=== PATIENT | female | born 1930 | race African-American/Black ===

== ENCOUNTER 2017-09-26 19:34 | Inpatient (IN) ==
[2017-09-26 20:45] LABS: Basophils % 0.2 % (0.0-0.8); Eosinophils # 0.1 10*3/uL (0.0-0.87); Eosinophils % 1.2 % (0.00-10.9); Hematocrit 35.9 VOL% (35.7-47.0); Hemoglobin 11.7 GM/DL (12.0-16.0); Immature Granulocytes % 0.6 %; Immature Granulocytes Absolute 0.03 #; Lymphocytes # 1.1 10*3/uL (1.4-4.0); Lymphocytes % 22.5 % (21.3-54.2); Mean Corpuscular HGB Conc 32.6 GM/DL (32-36); Mean Corpuscular Hemoglobin 27 PG (27-34); Mean Corpuscular Volume 82.5 FL (87-102); Mean Platelet Volume 11.5 FL (9.6-12.0); Monocytes # 0.5 10*3/uL (0.11-0.8); NRBC # 0.04 10*3/uL; Neutrophils # 3.2 10*3/uL (1.4-7.4); Neutrophils % 65.5 % (38.7-73.9); Platelet Count 124 T/CUMM (130-400); Red Blood Count 4.35 MC/CUMM (3.8-5.5); Red Cell Distribution Width 16.1 % (9.3-17.3); White Blood Count 4.9 T/CUMM (4-12)
[2017-09-26 20:47] LABS: Alanine Aminotransferase 122 U/L (13-56); Albumin 3.1 G/DL (3.4-5.0); Alkaline Phosphatase 120 U/L (45-117); Aspartate Amino Transferase 59 U/L (0-37); Bilirubin,Total < 0.39 MG/DL (0.2-1.0); Blood Urea Nitrogen 19 MG/DL (7-18); Calcium 9.2 MG/DL (8.5-10.1); Glucose 224 MG/DL (74-106); Lactic Acid 1.6 MMOL/L (0.4-2.0); Osmolality,Calculated 278.1 MOS/KG (273-304); Potassium 5.2 MMOL/L (3.5-5.1); Sodium 135 MMOL/L (136-145); Total Protein 7.9 G/DL (6.4-8.3)
[2017-09-26 21:19] LABS: Apearance,Urine CLEAR (Clear); Bilirubin,Urine Negative (Negative); Blood, Urine Negative (Negative); Glucose,Urine (UA) 50 mg/dL (Negative); Hyaline Casts,Urine 1 /LPF (0-3); Ketones,Urine Negative (Negative); Mucus,Urine Occasional /LPF (Occasional); Nitrite,Urine Negative (Negative); Protein,Urine Negative; RBC,Urine <1 /HPF (0-4); Squamous Epithelial Cell,Urine Occasional /HPF (0-10); Urine Color Straw (Yellow); Urine Urobilinogen < 2.0 EU/DL (0.2-1.0); WBC,Urine <1 /HPF (0-6)
[2017-09-26] MEDS ORDERED: SODIUM CHLORIDE 0.9% 1,000 ML IV STA (21:24)
[2017-09-26] MEDS ORDERED: ACETAMINOPHEN 325 MG TABLET PO PRN (22:07)
[2017-09-26] MEDS ORDERED: ONDANSETRON 4 MG/2 ML VIAL IV PRN (22:07)
[2017-09-27] MEDS: DEXTROSE 5% NACL 0.9% 1,000 ML IV SCH ×3 (01:50→19:15)
[2017-09-27 05:49] LABS: Basophils % 0.4 % (0.0-0.8); Eosinophils % 0.8 % (0.00-10.9); Hematocrit 31.5 VOL% (35.7-47.0); Hemoglobin 10.4 GM/DL (12.0-16.0); Immature Granulocytes % 0.2 %; Immature Granulocytes Absolute 0.01 #; Lymphocytes # 1.3 10*3/uL (1.4-4.0); Lymphocytes % 27.8 % (21.3-54.2); Mean Corpuscular Hemoglobin 27 PG (27-34); Mean Corpuscular Volume 82.2 FL (87-102); Mean Platelet Volume 11.1 FL (9.6-12.0); Monocytes # 0.6 10*3/uL (0.11-0.8); Monocytes % 12.8 % (1.7-12.7); NRBC # 0.03 10*3/uL; Neutrophils # 2.8 10*3/uL (1.4-7.4); Platelet Count 152 T/CUMM (130-400); Red Blood Count 3.83 MC/CUMM (3.8-5.5); Red Cell Distribution Width 15.9 % (9.3-17.3); White Blood Count 4.8 T/CUMM (4-12)
[2017-09-27 06:24] LABS: Albumin 2.5 G/DL (3.4-5.0); Bilirubin,Total 0.8 MG/DL (0.2-1.0); Calcium 8.7 MG/DL (8.5-10.1); Osmolality,Calculated 285.8 MOS/KG (273-304); Total Protein 5.8 G/DL (6.4-8.3)
[2017-09-27] MEDS ORDERED: MAGNESIUM HYDROXIDE SUSP 30 ML UDCUP PO PRN (08:25)
[2017-09-27] MEDS ORDERED: GLUCAGON 1 MG VIAL IM PRN (08:25)
[2017-09-27] MEDS ORDERED: GLUCOSE GEL 15 GM TUBE PO PRN (08:25)
[2017-09-27] MEDS ORDERED: traMADol 50 MG TABLET PO PRN (08:25)
[2017-09-27] MEDS ORDERED: LACTULOSE 20 GM/30 ML UDCUP PO PRN (08:25)
[2017-09-27] MEDS: LEVOFLOXACIN INJ 500 MG in PREMIX 1 EACH IV SCH (08:50)
[2017-09-27] MEDS: PANTOPRAZOLE 40 MG TABLET PO SCH (10:48)
[2017-09-27] MEDS: ASPIRIN EC 81 MG TABLET PO SCH (10:48)
[2017-09-27] MEDS: DOCUSATE SODIUM 100 MG CAPSULE PO SCH ×2 (10:48→21:10)
[2017-09-27] MEDS: MEMANTINE 10 MG TABLET PO SCH ×2 (10:49→21:10)
[2017-09-27] MEDS: LOSARTAN 25 MG TABLET PO SCH (10:49)
[2017-09-27] MEDS: ATORVASTATIN 10 MG TABLET PO SCH (21:10)
[2017-09-27] MEDS: DONEPEZIL 10 MG TABLET PO SCH (21:10)
[2017-09-27] MEDS: INSULIN GLARGINE 100 UNIT/ML SUBCUT SCH (21:10)
[2017-09-28 02:42] LABS: Basophils % 0.5 % (0.0-0.8); Eosinophils % 0.7 % (0.00-10.9); Hematocrit 32.2 VOL% (35.7-47.0); Hemoglobin 10.3 GM/DL (12.0-16.0); Immature Granulocytes % 0.5 %; Immature Granulocytes Absolute 0.02 #; Lymphocytes # 1.2 10*3/uL (1.4-4.0); Lymphocytes % 30.4 % (21.3-54.2); Mean Corpuscular Hemoglobin 27 PG (27-34); Mean Corpuscular Volume 83.6 FL (87-102); Mean Platelet Volume 11.9 FL (9.6-12.0); Monocytes # 0.5 10*3/uL (0.11-0.8); Monocytes % 13.2 % (1.7-12.7); NRBC # 0.03 10*3/uL; Neutrophils # 2.2 10*3/uL (1.4-7.4); Neutrophils % 54.7 % (38.7-73.9); Platelet Count 139 T/CUMM (130-400); Red Blood Count 3.85 MC/CUMM (3.8-5.5); Red Cell Distribution Width 16.1 % (9.3-17.3)
[2017-09-28] MEDS: DEXTROSE 5% NACL 0.9% 1,000 ML IV SCH ×3 (03:15→21:25)
[2017-09-28 03:24] LABS: Albumin 2.5 G/DL (3.4-5.0); Bilirubin,Total 0.7 MG/DL (0.2-1.0); Calcium 8.7 MG/DL (8.5-10.1); Osmolality,Calculated 289.4 MOS/KG (273-304); Potassium 4.7 MMOL/L (3.5-5.1); Total Protein 5.9 G/DL (6.4-8.3)
[2017-09-28] MEDS: LEVOFLOXACIN INJ 500 MG in PREMIX 1 EACH IV SCH (09:01)
[2017-09-28] MEDS: ASPIRIN EC 81 MG TABLET PO SCH (09:02)
[2017-09-28] MEDS: PANTOPRAZOLE 40 MG TABLET PO SCH (09:02)
[2017-09-28] MEDS: LOSARTAN 25 MG TABLET PO SCH (09:02)
[2017-09-28] MEDS: MEMANTINE 10 MG TABLET PO SCH ×2 (09:02→21:24)
[2017-09-28] MEDS: DOCUSATE SODIUM 100 MG CAPSULE PO SCH ×2 (09:02→21:24)
[2017-09-28] MEDS: TROLAMINE SALICYLATE 10% CREAM 85 GM TUBE TOP SCH ×2 (12:13→21:25)
[2017-09-28] MEDS ORDERED: DEXTROSE 50% 25 GM/50 ML VIAL IV PRN (13:47)
[2017-09-28] MEDS: FLUCONAZOLE 100 MG TABLET PO SCH (16:42)
[2017-09-28] MEDS: DONEPEZIL 10 MG TABLET PO SCH (21:24)
[2017-09-28] MEDS: ATORVASTATIN 10 MG TABLET PO SCH (21:24)
[2017-09-28] MEDS: INSULIN GLARGINE 100 UNIT/ML SUBCUT SCH (21:25)
[2017-09-28] MEDS ORDERED: DEXTROSE 10% 1,000 ML IV SCH (23:45)
[2017-09-29] MEDS: DEXTROSE 10% 500 ML IV SCH ×2 (00:16→16:03)
[2017-09-29 05:18] LABS: Calcium 8.7 MG/DL (8.5-10.1); Osmolality,Calculated 285.7 MOS/KG (273-304); Potassium 4.9 MMOL/L (3.5-5.1)
[2017-09-29] MEDS: LEVOFLOXACIN INJ 500 MG in PREMIX 1 EACH IV SCH (08:33)
[2017-09-29] MEDS: TROLAMINE SALICYLATE 10% CREAM 85 GM TUBE TOP SCH ×2 (08:33→20:55)
[2017-09-29] MEDS: FLUCONAZOLE 100 MG TABLET PO SCH (08:34)
[2017-09-29] MEDS: PANTOPRAZOLE 40 MG TABLET PO SCH (08:34)
[2017-09-29] MEDS: ASPIRIN EC 81 MG TABLET PO SCH (08:34)
[2017-09-29] MEDS: DOCUSATE SODIUM 100 MG CAPSULE PO SCH ×2 (08:34→20:55)
[2017-09-29] MEDS: MEMANTINE 10 MG TABLET PO SCH ×2 (08:34→20:55)
[2017-09-29] MEDS: LOSARTAN 25 MG TABLET PO SCH (08:34)
[2017-09-29] MEDS: LORazepam 2 MG/1 ML VIAL IV PRN (13:04)
[2017-09-29 14:18] LABS: Calcium 8.9 MG/DL (8.5-10.1)
[2017-09-29 14:19] LABS: Osmolality,Calculated 280.1 MOS/KG (273-304); Potassium 5.1 MMOL/L (3.5-5.1)
[2017-09-29] MEDS: DONEPEZIL 10 MG TABLET PO SCH (20:55)
[2017-09-29] MEDS: ATORVASTATIN 10 MG TABLET PO SCH (20:55)
[2017-09-29] MEDS: INSULIN GLARGINE 100 UNIT/ML SUBCUT SCH (21:31)
[2017-09-30] MEDS: DEXTROSE 10% 500 ML IV SCH (05:50)
[2017-09-30] MEDS: LEVOFLOXACIN INJ 500 MG in PREMIX 1 EACH IV SCH (09:01)
[2017-09-30] MEDS: DOCUSATE SODIUM 100 MG CAPSULE PO SCH ×2 (09:46→21:04)
[2017-09-30] MEDS: ASPIRIN EC 81 MG TABLET PO SCH (09:46)
[2017-09-30] MEDS: LOSARTAN 25 MG TABLET PO SCH (09:46)
[2017-09-30] MEDS: FLUCONAZOLE 100 MG TABLET PO SCH (09:50)
[2017-09-30] MEDS: PANTOPRAZOLE 40 MG TABLET PO SCH (09:51)
[2017-09-30] MEDS: MEMANTINE 10 MG TABLET PO SCH ×2 (09:51→21:04)
[2017-09-30] MEDS: TROLAMINE SALICYLATE 10% CREAM 85 GM TUBE TOP SCH ×2 (09:51→21:04)
[2017-09-30] MEDS: DONEPEZIL 10 MG TABLET PO SCH (21:04)
[2017-09-30] MEDS: ATORVASTATIN 10 MG TABLET PO SCH (21:04)
[2017-09-30] MEDS: INSULIN GLARGINE 100 UNIT/ML SUBCUT SCH (21:05)
[2017-10-01] MEDS: DEXTROSE 10% 500 ML IV SCH ×2 (05:33)
[2017-10-01] MEDS ORDERED: GLUCAGON 1 MG VIAL IM PRN (08:12)
[2017-10-01] MEDS ORDERED: DEXTROSE 50% 25 GM/50 ML VIAL IV PRN (08:12)
[2017-10-01 08:30] LABS: Basophils % 0.4 % (0.0-0.8); Eosinophils # 0.1 10*3/uL (0.0-0.87); Eosinophils % 1.9 % (0.00-10.9); Hematocrit 33.5 VOL% (35.7-47.0); Immature Granulocytes % 0.4 %; Immature Granulocytes Absolute 0.02 #; Lymphocytes # 1.6 10*3/uL (1.4-4.0); Lymphocytes % 31.1 % (21.3-54.2); Mean Corpuscular HGB Conc 32.8 GM/DL (32-36); Mean Corpuscular Hemoglobin 27 PG (27-34); Mean Corpuscular Volume 82.1 FL (87-102); Mean Platelet Volume 11.3 FL (9.6-12.0); Monocytes # 0.8 10*3/uL (0.11-0.8); Monocytes % 14.6 % (1.7-12.7); NRBC # 0.02 10*3/uL; Neutrophils # 2.7 10*3/uL (1.4-7.4); Neutrophils % 51.6 % (38.7-73.9); Platelet Count 127 T/CUMM (130-400); Red Blood Count 4.08 MC/CUMM (3.8-5.5); Red Cell Distribution Width 16.2 % (9.3-17.3); White Blood Count 5.3 T/CUMM (4-12)
[2017-10-01] MEDS: PANTOPRAZOLE 40 MG TABLET PO SCH (08:45)
[2017-10-01] MEDS: ASPIRIN EC 81 MG TABLET PO SCH (08:45)
[2017-10-01] MEDS: LOSARTAN 25 MG TABLET PO SCH (08:45)
[2017-10-01] MEDS: TROLAMINE SALICYLATE 10% CREAM 85 GM TUBE TOP SCH ×2 (08:46→21:15)
[2017-10-01] MEDS: MEMANTINE 10 MG TABLET PO SCH ×2 (08:46→21:11)
[2017-10-01] MEDS: DOCUSATE SODIUM 100 MG CAPSULE PO SCH ×2 (08:46→21:11)
[2017-10-01] MEDS: FLUCONAZOLE 100 MG TABLET PO SCH (08:46)
[2017-10-01] MEDS: LEVOFLOXACIN INJ 500 MG in PREMIX 1 EACH IV SCH (08:46)
[2017-10-01 08:57] LABS: Calcium 9.1 MG/DL (8.5-10.1); Osmolality,Calculated 282.3 MOS/KG (273-304); Potassium 4.3 MMOL/L (3.5-5.1)
[2017-10-01] MEDS ORDERED: ALBUTEROL/IPRATROPIUM 3 ML NEB RESP TX PRN (12:36)
[2017-10-01] MEDS: INSULIN LISPRO 100 UNIT/ML SUBCUT SCH ×3 (13:21→21:16)
[2017-10-01] MEDS: ALBUTEROL/IPRATROPIUM 3 ML NEB RESP TX SCH ×2 (13:30→19:05)
[2017-10-01] MEDS: DONEPEZIL 10 MG TABLET PO SCH (21:10)
[2017-10-01] MEDS: ATORVASTATIN 10 MG TABLET PO SCH (21:11)
[2017-10-01] MEDS: INSULIN GLARGINE 100 UNIT/ML SUBCUT SCH (21:16)
[2017-10-02] MEDS: DEXTROSE 10% 500 ML IV SCH ×2
[2017-10-02] MEDS: ALBUTEROL/IPRATROPIUM 3 ML NEB RESP TX SCH ×2 (07:17→20:16)
[2017-10-02] MEDS: INSULIN LISPRO 100 UNIT/ML SUBCUT SCH ×4 (08:42→21:14)
[2017-10-02] MEDS: LEVOFLOXACIN INJ 500 MG in PREMIX 1 EACH IV SCH (09:06)
[2017-10-02] MEDS: PANTOPRAZOLE 40 MG TABLET PO SCH (09:06)
[2017-10-02] MEDS: FLUCONAZOLE 100 MG TABLET PO SCH (09:06)
[2017-10-02] MEDS: MEMANTINE 10 MG TABLET PO SCH ×2 (09:06→21:13)
[2017-10-02] MEDS: DOCUSATE SODIUM 100 MG CAPSULE PO SCH ×2 (09:06→21:13)
[2017-10-02] MEDS: TROLAMINE SALICYLATE 10% CREAM 85 GM TUBE TOP SCH ×2 (09:06→21:13)
[2017-10-02] MEDS: ASPIRIN EC 81 MG TABLET PO SCH (09:06)
[2017-10-02] MEDS: LOSARTAN 25 MG TABLET PO SCH (09:06)
[2017-10-02] MEDS: ATORVASTATIN 10 MG TABLET PO SCH (21:13)
[2017-10-02] MEDS: DONEPEZIL 10 MG TABLET PO SCH (21:13)
[2017-10-02] MEDS: INSULIN GLARGINE 100 UNIT/ML SUBCUT SCH (21:14)
[2017-10-02] MEDS: LORazepam 2 MG/1 ML VIAL IV PRN (22:21)
[2017-10-03] MEDS: INSULIN LISPRO 100 UNIT/ML SUBCUT SCH (07:15)
[2017-10-03] MEDS: ALBUTEROL/IPRATROPIUM 3 ML NEB RESP TX SCH (07:20)
[2017-10-03 07:31] VITALS: BP 114/77
== END 2017-10-03 08:30 | DRG 922 ==
LOC: EDUNIT# → EDBD → N.ED 19:34 → N.EDINP 22:07 → N.2E 22:43
PROVIDERS: ADMIT Internal Medicine; ATTEND Internal Medicine

== ENCOUNTER 2017-10-08 16:21 | Inpatient (IN) ==
[2017-10-08] MEDS ORDERED: SODIUM CHLORIDE 0.9% 500 ML IV STA (16:52)
[2017-10-08 17:56] LABS: Basophils % 0.2 % (0.0-0.8); Eosinophils % 0.6 % (0.00-10.9); Hematocrit 34.4 VOL% (35.7-47.0); Hemoglobin 11.2 GM/DL (12.0-16.0); Immature Granulocytes % 0.6 %; Immature Granulocytes Absolute 0.04 #; Lymphocytes # 1.4 10*3/uL (1.4-4.0); Lymphocytes % 22.2 % (21.3-54.2); Mean Corpuscular HGB Conc 32.6 GM/DL (32-36); Mean Corpuscular Hemoglobin 27 PG (27-34); Mean Corpuscular Volume 82.7 FL (87-102); Mean Platelet Volume 11.7 FL (9.6-12.0); Monocytes # 0.5 10*3/uL (0.11-0.8); Monocytes % 7.8 % (1.7-12.7); NRBC # 0.02 10*3/uL; Neutrophils # 4.2 10*3/uL (1.4-7.4); Neutrophils % 68.6 % (38.7-73.9); Platelet Count 186 T/CUMM (130-400); Red Blood Count 4.16 MC/CUMM (3.8-5.5); Red Cell Distribution Width 16.5 % (9.3-17.3); White Blood Count 6.2 T/CUMM (4-12)
[2017-10-08 18:08] LABS: PT Patient Result 10.8 SECS
[2017-10-08 18:16] LABS: Ammonia 20 UMOL/L (11-32)
[2017-10-08 18:22] LABS: Alanine Aminotransferase 80 U/L (13-56); Albumin 2.9 G/DL (3.4-5.0); Alkaline Phosphatase 125 U/L (45-117); Aspartate Amino Transferase 33 U/L (0-37); Bilirubin,Total < 0.39 MG/DL (0.2-1.0); Blood Urea Nitrogen 22 MG/DL (7-18); Glucose 186 MG/DL (74-106); Lactic Acid 1.3 MMOL/L (0.4-2.0); Osmolality,Calculated 282.7 MOS/KG (273-304); Potassium 5.2 MMOL/L (3.5-5.1); Sodium 138 MMOL/L (136-145); Total Protein 7.1 G/DL (6.4-8.3); Troponin I Only < 0.015 NG/ML (0.00-0.045)
[2017-10-08 18:36] LABS: Apearance,Urine CLEAR (Clear); Bacteria,Urine Many /HPF (Few); Bilirubin,Urine Negative (Negative); Blood, Urine Negative (Negative); Glucose,Urine (UA) Negative (Negative); Ketones,Urine Negative (Negative); Mucus,Urine Occasional /LPF (Occasional); Nitrite,Urine Negative (Negative); Protein,Urine Negative; RBC,Urine 1 /HPF (0-4); Urine Color Yellow (Yellow); Urine Specific Gravity 1.012 (1.001-1.035); Urine Urobilinogen < 2.0 EU/DL (0.2-1.0); WBC,Urine 23 /HPF (0-6)
[2017-10-08] MEDS ORDERED: cefTRIAXone 1,000 MG in SODIUM CHLORIDE 0.9% 100 ML IV STA (18:44)
[2017-10-08] MEDS ORDERED: cefTRIAXone 1,000 MG VIAL ONE (19:02)
[2017-10-08] MEDS ORDERED: ACETAMINOPHEN 325 MG TABLET PO PRN (19:58)
[2017-10-08] MEDS ORDERED: traMADol 50 MG TABLET PO PRN (19:58)
[2017-10-08] MEDS ORDERED: ACETAMINOPHEN 500 MG TABLET PO PRN (19:58)
[2017-10-08] MEDS ORDERED: MAGNESIUM HYDROXIDE SUSP 30 ML UDCUP PO PRN (19:58)
[2017-10-08] MEDS ORDERED: ONDANSETRON 4 MG/2 ML VIAL IV PRN (19:58)
[2017-10-08] MEDS ORDERED: DEXTROSE 50% 25 GM/50 ML VIAL IV PRN (19:58)
[2017-10-08] MEDS ORDERED: GLUCAGON 1 MG VIAL IM PRN ×2 (19:58)
[2017-10-08] MEDS ORDERED: LACTULOSE 20 GM/30 ML UDCUP PO PRN (19:58)
[2017-10-08] MEDS ORDERED: INSULIN DETEMIR 100 UNIT/ML SUBCUT SCH (21:00)
[2017-10-08] MEDS: INSULIN REGULAR 100 UNIT/ML SUBCUT SCH (21:28)
[2017-10-08] MEDS: DOCUSATE SODIUM 100 MG CAPSULE PO SCH (21:28)
[2017-10-08] MEDS: ATORVASTATIN 10 MG TABLET PO SCH (21:28)
[2017-10-08] MEDS: DONEPEZIL 10 MG TABLET PO SCH (21:28)
[2017-10-08] MEDS: INSULIN GLARGINE 100 UNIT/ML SUBCUT SCH ×2 (21:28→21:30)
[2017-10-08] MEDS: SODIUM CHLORIDE 0.9% 1,000 ML IV SCH (21:28)
[2017-10-09 04:42] LABS: Basophils % 0.2 % (0.0-0.8); Eosinophils # 0.1 10*3/uL (0.0-0.87); Eosinophils % 1.2 % (0.00-10.9); Hematocrit 32.7 VOL% (35.7-47.0); Hemoglobin 10.8 GM/DL (12.0-16.0); Immature Granulocytes % 0.6 %; Immature Granulocytes Absolute 0.03 #; Lymphocytes # 1.5 10*3/uL (1.4-4.0); Lymphocytes % 29.6 % (21.3-54.2); Mean Corpuscular Hemoglobin 27 PG (27-34); Mean Corpuscular Volume 81.1 FL (87-102); Mean Platelet Volume 11.8 FL (9.6-12.0); Monocytes # 0.4 10*3/uL (0.11-0.8); Monocytes % 8.1 % (1.7-12.7); NRBC # 0.02 10*3/uL; Neutrophils # 3.1 10*3/uL (1.4-7.4); Neutrophils % 60.3 % (38.7-73.9); Platelet Count 200 T/CUMM (130-400); Red Blood Count 4.03 MC/CUMM (3.8-5.5); Red Cell Distribution Width 16.6 % (9.3-17.3); White Blood Count 5.2 T/CUMM (4-12)
[2017-10-09] MEDS: SODIUM CHLORIDE 0.9% 1,000 ML IV SCH ×3 (05:12→20:56)
[2017-10-09 05:21] LABS: Albumin 2.9 G/DL (3.4-5.0); Bilirubin,Total 0.6 MG/DL (0.2-1.0); Calcium 8.9 MG/DL (8.5-10.1); Osmolality,Calculated 283.1 MOS/KG (273-304); Potassium 5.1 MMOL/L (3.5-5.1); Risk Ratio 2.45; Total Protein 6.9 G/DL (6.4-8.3)
[2017-10-09] MEDS: LEVOTHYROXINE 25 MCG TABLET PO SCH (06:32)
[2017-10-09] MEDS: LOSARTAN 25 MG TABLET PO SCH (09:38)
[2017-10-09] MEDS: ASPIRIN EC 81 MG TABLET PO SCH (09:38)
[2017-10-09] MEDS: MULTIVITAMIN (CENTRUM) TABLET PO SCH (09:38)
[2017-10-09] MEDS: MEMANTINE 10 MG TABLET PO SCH ×2 (09:38→20:49)
[2017-10-09] MEDS: DOCUSATE SODIUM 100 MG CAPSULE PO SCH ×2 (09:39→20:49)
[2017-10-09] MEDS: PANTOPRAZOLE 40 MG TABLET PO SCH (09:39)
[2017-10-09] MEDS: INSULIN REGULAR 100 UNIT/ML SUBCUT SCH ×4 (10:01→20:32)
[2017-10-09] MEDS: cefTRIAXone 1,000 MG in SYRINGE 1 EACH IV SCH (17:26)
[2017-10-09] MEDS: ATORVASTATIN 10 MG TABLET PO SCH (20:49)
[2017-10-09] MEDS: DONEPEZIL 10 MG TABLET PO SCH (20:49)
[2017-10-10] MEDS: SODIUM CHLORIDE 0.9% 1,000 ML IV SCH (04:45)
[2017-10-10] MEDS: LEVOTHYROXINE 25 MCG TABLET PO SCH (05:33)
[2017-10-10 06:51] LABS: Basophils % 0.2 % (0.0-0.8); Eosinophils # 0.1 10*3/uL (0.0-0.87); Eosinophils % 1.2 % (0.00-10.9); Hematocrit 29.9 VOL% (35.7-47.0); Hemoglobin 10.1 GM/DL (12.0-16.0); Immature Granulocytes Absolute 0.06 #; Lymphocytes % 34.2 % (21.3-54.2); Mean Corpuscular HGB Conc 33.8 GM/DL (32-36); Mean Corpuscular Hemoglobin 27 PG (27-34); Mean Corpuscular Volume 80.4 FL (87-102); Mean Platelet Volume 11.5 FL (9.6-12.0); Monocytes # 0.5 10*3/uL (0.11-0.8); Monocytes % 8.8 % (1.7-12.7); NRBC # 0.02 10*3/uL; Neutrophils # 3.2 10*3/uL (1.4-7.4); Neutrophils % 54.6 % (38.7-73.9); Platelet Count 197 T/CUMM (130-400); Red Blood Count 3.72 MC/CUMM (3.8-5.5); Red Cell Distribution Width 16.9 % (9.3-17.3); White Blood Count 5.8 T/CUMM (4-12)
[2017-10-10 07:18] LABS: Calcium 8.8 MG/DL (8.5-10.1); Osmolality,Calculated 285.7 MOS/KG (273-304); Potassium 4.8 MMOL/L (3.5-5.1)
[2017-10-10] MEDS: INSULIN REGULAR 100 UNIT/ML SUBCUT SCH (07:28)
[2017-10-10] MEDS: DEXTROSE 5% NACL 0.9% 1,000 ML IV SCH ×3 (09:30→23:14)
[2017-10-10] MEDS: PANTOPRAZOLE 40 MG TABLET PO SCH (10:27)
[2017-10-10] MEDS: MEMANTINE 10 MG TABLET PO SCH ×2 (10:27→21:22)
[2017-10-10] MEDS: ASPIRIN EC 81 MG TABLET PO SCH (10:27)
[2017-10-10] MEDS: MULTIVITAMIN (CENTRUM) TABLET PO SCH (10:27)
[2017-10-10] MEDS: DOCUSATE SODIUM 100 MG CAPSULE PO SCH ×2 (10:27→21:22)
[2017-10-10] MEDS: LOSARTAN 25 MG TABLET PO SCH (10:27)
[2017-10-10] MEDS: VANCOMYCIN INJ 1,250 MG in SODIUM CHLORIDE 0.9% 250 ML IV SCH (16:00)
[2017-10-10] MEDS: cefTRIAXone 1,000 MG in SYRINGE 1 EACH IV SCH (17:55)
[2017-10-10] MEDS: ATORVASTATIN 10 MG TABLET PO SCH (21:22)
[2017-10-10] MEDS: DONEPEZIL 10 MG TABLET PO SCH (21:22)
[2017-10-11] MEDS: DEXTROSE 5% NACL 0.9% 1,000 ML IV SCH ×3 (04:31→21:08)
[2017-10-11] MEDS: LEVOTHYROXINE 25 MCG TABLET PO SCH (05:58)
[2017-10-11] MEDS: MEMANTINE 10 MG TABLET PO SCH ×2 (09:26→21:09)
[2017-10-11] MEDS: LOSARTAN 25 MG TABLET PO SCH (09:27)
[2017-10-11] MEDS: ASPIRIN EC 81 MG TABLET PO SCH (09:27)
[2017-10-11] MEDS: MULTIVITAMIN (CENTRUM) TABLET PO SCH (09:27)
[2017-10-11] MEDS: DOCUSATE SODIUM 100 MG CAPSULE PO SCH ×2 (09:28→21:09)
[2017-10-11] MEDS: PANTOPRAZOLE 40 MG TABLET PO SCH (09:28)
[2017-10-11] MEDS: VANCOMYCIN INJ 1,250 MG in SODIUM CHLORIDE 0.9% 250 ML IV SCH (14:23)
[2017-10-11] MEDS: ceFAZolin 1,000 MG in SYRINGE 1 EACH IV SCH (19:25)
[2017-10-11] MEDS: DONEPEZIL 10 MG TABLET PO SCH (21:09)
[2017-10-11] MEDS: ATORVASTATIN 10 MG TABLET PO SCH (21:09)
[2017-10-11] MEDS ORDERED: INSULIN REGULAR 100 UNIT/ML ONE (23:04)
[2017-10-11] MEDS: INSULIN REGULAR 100 UNIT/ML SUBCUT SCH (23:06)
[2017-10-12] MEDS: ceFAZolin 1,000 MG in SYRINGE 1 EACH IV SCH ×3 (01:30→17:08)
[2017-10-12] MEDS: DEXTROSE 5% NACL 0.9% 1,000 ML IV SCH ×2 (03:00→20:11)
[2017-10-12] MEDS: LEVOTHYROXINE 25 MCG TABLET PO SCH (05:45)
[2017-10-12 06:01] LABS: Basophils % 0.4 % (0.0-0.8); Eosinophils # 0.1 10*3/uL (0.0-0.87); Eosinophils % 2.5 % (0.00-10.9); Hematocrit 29.7 VOL% (35.7-47.0); Hemoglobin 9.6 GM/DL (12.0-16.0); Immature Granulocytes % 0.6 %; Immature Granulocytes Absolute 0.03 #; Lymphocytes # 1.7 10*3/uL (1.4-4.0); Lymphocytes % 32.8 % (21.3-54.2); Mean Corpuscular HGB Conc 32.3 GM/DL (32-36); Mean Corpuscular Hemoglobin 27 PG (27-34); Mean Corpuscular Volume 82.5 FL (87-102); Mean Platelet Volume 10.8 FL (9.6-12.0); Monocytes # 0.7 10*3/uL (0.11-0.8); Monocytes % 14.3 % (1.7-12.7); NRBC # 0.02 10*3/uL; Neutrophils # 2.6 10*3/uL (1.4-7.4); Neutrophils % 49.4 % (38.7-73.9); Platelet Count 184 T/CUMM (130-400); White Blood Count 5.2 T/CUMM (4-12)
[2017-10-12 06:16] LABS: Calcium 8.7 MG/DL (8.5-10.1); Osmolality,Calculated 288.4 MOS/KG (273-304); Potassium 4.2 MMOL/L (3.5-5.1)
[2017-10-12] MEDS: INSULIN REGULAR 100 UNIT/ML SUBCUT SCH ×4 (08:47→20:23)
[2017-10-12] MEDS: MEMANTINE 10 MG TABLET PO SCH ×2 (10:06→20:22)
[2017-10-12] MEDS: DOCUSATE SODIUM 100 MG CAPSULE PO SCH ×2 (10:06→20:22)
[2017-10-12] MEDS: ASPIRIN EC 81 MG TABLET PO SCH (10:07)
[2017-10-12] MEDS: PANTOPRAZOLE 40 MG TABLET PO SCH (10:07)
[2017-10-12] MEDS: LOSARTAN 25 MG TABLET PO SCH (10:07)
[2017-10-12] MEDS: MULTIVITAMIN (CENTRUM) TABLET PO SCH (10:08)
[2017-10-12] MEDS: DONEPEZIL 10 MG TABLET PO SCH (20:22)
[2017-10-12] MEDS: ATORVASTATIN 10 MG TABLET PO SCH (20:22)
[2017-10-12] MEDS: MELATONIN 3 MG TABLET PO PRN (22:37)
[2017-10-13] MEDS: cloNIDine 0.1 MG TABLET PO PRN ×2 (00:13→06:31)
[2017-10-13] MEDS: DEXTROSE 5% NACL 0.9% 1,000 ML IV SCH ×4 (01:00→20:30)
[2017-10-13] MEDS: ceFAZolin 1,000 MG in SYRINGE 1 EACH IV SCH ×3 (01:01→18:11)
[2017-10-13] MEDS: LEVOTHYROXINE 25 MCG TABLET PO SCH (06:30)
[2017-10-13] MEDS: INSULIN REGULAR 100 UNIT/ML SUBCUT SCH ×4 (09:48→20:25)
[2017-10-13] MEDS: ASPIRIN EC 81 MG TABLET PO SCH (09:50)
[2017-10-13] MEDS: MULTIVITAMIN (CENTRUM) TABLET PO SCH (09:50)
[2017-10-13] MEDS: LOSARTAN 25 MG TABLET PO SCH (09:50)
[2017-10-13] MEDS: MEMANTINE 10 MG TABLET PO SCH ×2 (09:50→20:25)
[2017-10-13] MEDS: DOCUSATE SODIUM 100 MG CAPSULE PO SCH ×2 (09:50→20:25)
[2017-10-13] MEDS: PANTOPRAZOLE 40 MG TABLET PO SCH (09:50)
[2017-10-13] MEDS: ATORVASTATIN 10 MG TABLET PO SCH (20:25)
[2017-10-13] MEDS: MELATONIN 3 MG TABLET PO PRN (20:25)
[2017-10-13] MEDS: DONEPEZIL 10 MG TABLET PO SCH (20:25)
[2017-10-14] MEDS: LEVOTHYROXINE 25 MCG TABLET PO SCH (05:26)
[2017-10-14] MEDS: cloNIDine 0.1 MG TABLET PO PRN ×2 (05:26→21:05)
[2017-10-14 06:06] LABS: Basophils % 0.2 % (0.0-0.8); Eosinophils # 0.1 10*3/uL (0.0-0.87); Eosinophils % 2.4 % (0.00-10.9); Hematocrit 32.2 VOL% (35.7-47.0); Hemoglobin 10.7 GM/DL (12.0-16.0); Immature Granulocytes % 0.5 %; Immature Granulocytes Absolute 0.03 #; Lymphocytes # 1.4 10*3/uL (1.4-4.0); Lymphocytes % 24.2 % (21.3-54.2); Mean Corpuscular HGB Conc 33.2 GM/DL (32-36); Mean Corpuscular Hemoglobin 27 PG (27-34); Mean Corpuscular Volume 81.9 FL (87-102); Mean Platelet Volume 10.7 FL (9.6-12.0); Monocytes # 0.6 10*3/uL (0.11-0.8); Monocytes % 10.8 % (1.7-12.7); NRBC # 0.02 10*3/uL; Neutrophils # 3.6 10*3/uL (1.4-7.4); Neutrophils % 61.9 % (38.7-73.9); Platelet Count 198 T/CUMM (130-400); Red Blood Count 3.93 MC/CUMM (3.8-5.5); Red Cell Distribution Width 16.2 % (9.3-17.3); White Blood Count 5.8 T/CUMM (4-12)
[2017-10-14 06:40] LABS: Alanine Aminotransferase 37 U/L (13-56); Alkaline Phosphatase 124 U/L (45-117); Aspartate Amino Transferase 19 U/L (0-37); Bilirubin,Total < 0.39 MG/DL (0.2-1.0); Blood Urea Nitrogen 10 MG/DL (7-18); Calcium 9.4 MG/DL (8.5-10.1); Glucose 103 MG/DL (74-106); Osmolality,Calculated 284.8 MOS/KG (273-304); Sodium 144 MMOL/L (136-145); Total Protein 6.8 G/DL (6.4-8.3)
[2017-10-14] MEDS ORDERED: cloNIDine 0.1 MG TABLET PO SCH (09:00)
[2017-10-14] MEDS: INSULIN REGULAR 100 UNIT/ML SUBCUT SCH ×4 (09:07→21:06)
[2017-10-14] MEDS: LOSARTAN 25 MG TABLET PO SCH (09:37)
[2017-10-14] MEDS: PANTOPRAZOLE 40 MG TABLET PO SCH (09:38)
[2017-10-14] MEDS: DOCUSATE SODIUM 100 MG CAPSULE PO SCH ×2 (09:38→21:05)
[2017-10-14] MEDS: ASPIRIN EC 81 MG TABLET PO SCH (09:38)
[2017-10-14] MEDS: MEMANTINE 10 MG TABLET PO SCH ×2 (09:38→21:05)
[2017-10-14] MEDS: MULTIVITAMIN (CENTRUM) TABLET PO SCH (09:38)
[2017-10-14] MEDS: AMOXICILLIN/CLAV 500 MG TABLET PO SCH ×2 (09:38→21:06)
[2017-10-14] MEDS: DONEPEZIL 10 MG TABLET PO SCH (21:05)
[2017-10-14] MEDS: ATORVASTATIN 10 MG TABLET PO SCH (21:05)
[2017-10-15 05:57] LABS: Calcium 8.7 MG/DL (8.5-10.1); Osmolality,Calculated 284.8 MOS/KG (273-304); Potassium 3.9 MMOL/L (3.5-5.1)
[2017-10-15] MEDS: LEVOTHYROXINE 25 MCG TABLET PO SCH (06:00)
[2017-10-15 06:45] VITALS: BP 120/60
[2017-10-15] MEDS ORDERED: LOSARTAN 25 MG TABLET PO SCH (08:00)
[2017-10-15] MEDS ORDERED: cloNIDine 0.1 MG TABLET PO SCH (09:00)
[2017-10-15] MEDS: MULTIVITAMIN (CENTRUM) TABLET PO SCH (09:59)
[2017-10-15] MEDS: ASPIRIN EC 81 MG TABLET PO SCH (09:59)
[2017-10-15] MEDS: AMOXICILLIN/CLAV 500 MG TABLET PO SCH (10:00)
[2017-10-15] MEDS: INSULIN REGULAR 100 UNIT/ML SUBCUT SCH (10:00)
[2017-10-15] MEDS: DOCUSATE SODIUM 100 MG CAPSULE PO SCH (10:00)
[2017-10-15] MEDS: MEMANTINE 10 MG TABLET PO SCH (10:01)
[2017-10-15] MEDS: PANTOPRAZOLE 40 MG TABLET PO SCH (10:01)
== END 2017-10-15 10:10 | DRG 922 ==
LOC: EDUNIT# → EDBD → N.ED 16:21 → N.EDINP 18:45 → N.TELEN 19:22 → N.3E 10-09 13:31
PROVIDERS: ADMIT Internal Medicine; ATTEND Internal Medicine

== ENCOUNTER 2017-12-11 11:46 | Inpatient (IN) ==
[2017-12-11] MEDS ORDERED: SODIUM CHLORIDE 0.9% 500 ML IV STA (12:13)
[2017-12-11] MEDS ORDERED: DEXTROSE 50% 25 GM/50 ML VIAL IV STA (12:41)
[2017-12-11 12:42] LABS: Basophils % 0.2 % (0.0-0.8); Eosinophils % 0.3 % (0.00-10.9); Hematocrit 34.7 VOL% (35.7-47.0); Hemoglobin 11.2 GM/DL (12.0-16.0); Immature Granulocytes % 0.3 %; Immature Granulocytes Absolute 0.03 #; Lymphocytes # 1.7 10*3/uL (1.4-4.0); Mean Corpuscular HGB Conc 32.3 GM/DL (32-36); Mean Corpuscular Hemoglobin 27 PG (27-34); Mean Corpuscular Volume 83.2 FL (87-102); Mean Platelet Volume 11.1 FL (9.6-12.0); Monocytes % 11.5 % (1.7-12.7); NRBC # 0.02 10*3/uL; Neutrophils # 5.8 10*3/uL (1.4-7.4); Neutrophils % 67.7 % (38.7-73.9); Platelet Count 134 T/CUMM (130-400); Red Blood Count 4.17 MC/CUMM (3.8-5.5); Red Cell Distribution Width 16.7 % (9.3-17.3); White Blood Count 8.6 T/CUMM (4-12)
[2017-12-11] MEDS ORDERED: DEXTROSE 50% 25 GM/50 ML SYRINGE IV ONE (12:42)
[2017-12-11 12:48] LABS: Apearance,Urine CLEAR (Clear); Bilirubin,Urine Negative (Negative); Blood, Urine Negative (Negative); Glucose,Urine (UA) Negative (Negative); Hyaline Casts,Urine 1 /LPF (0-3); Ketones,Urine Negative (Negative); Nitrite,Urine Positive (Negative); Protein,Urine Negative; RBC,Urine 2 /HPF (0-4); Squamous Epithelial Cell,Urine Occasional /HPF (0-10); Urine Color Yellow (Yellow); Urine Urobilinogen < 2.0 EU/DL (0.2-1.0); WBC,Urine 14 /HPF (0-6)
[2017-12-11 13:08] LABS: Alanine Aminotransferase 79 U/L (13-56); Albumin 2.7 G/DL (3.4-5.0); Alkaline Phosphatase 109 U/L (45-117); Aspartate Amino Transferase 40 U/L (0-37); Blood Urea Nitrogen 24 MG/DL (7-18); Calcium 9.2 MG/DL (8.5-10.1); Glucose 73 MG/DL (74-106); Osmolality,Calculated 292.6 MOS/KG (273-304); Potassium 5.2 MMOL/L (3.5-5.1); Sodium 146 MMOL/L (136-145); Total Protein 7.7 G/DL (6.4-8.3); Troponin I Only < 0.015 NG/ML (0.00-0.045)
[2017-12-11] MEDS ORDERED: LEVOFLOXACIN INJ 500 MG in PREMIX 1 EACH IV STA (13:09)
[2017-12-11 13:20] LABS: Ammonia 28 UMOL/L (11-32)
[2017-12-11] MEDS ORDERED: ONDANSETRON 4 MG/2 ML VIAL IV PRN ×2 (14:24→16:09)
[2017-12-11] MEDS ORDERED: SODIUM CHLORIDE 0.9% 1,000 ML IV SCH (14:30)
[2017-12-11] MEDS ORDERED: DEXTROSE 5% NACL 0.45% 1,000 ML IV SCH (14:30)
[2017-12-11] MEDS ORDERED: ENOXAPARIN 30 MG/0.3 ML SYRINGE SUBCUT SCH (14:30)
[2017-12-11] MEDS ORDERED: cefTRIAXone 1,000 MG in SODIUM CHLORIDE 0.9% 100 ML IV SCH (14:30)
[2017-12-11] MEDS ORDERED: DEXTROSE 50% 25 GM/50 ML VIAL IV PRN (14:33)
[2017-12-11] MEDS ORDERED: GLUCAGON 1 MG VIAL IM PRN ×2 (14:33→16:09)
[2017-12-11] MEDS ORDERED: MEROPENEM 500 MG in SODIUM CHLORIDE 0.9% 100 ML IV SCH (15:00)
[2017-12-11] MEDS ORDERED: ACETAMINOPHEN 325 MG TABLET PO PRN (16:09)
[2017-12-11] MEDS ORDERED: INSULIN LISPRO 100 UNIT/ML SUBCUT SCH (16:30)
[2017-12-11] MEDS: SODIUM CHLORIDE 0.9% 1,000 ML IV SCH (16:35)
[2017-12-11] MEDS ORDERED: DONEPEZIL 10 MG TABLET PO SCH (21:00)
[2017-12-11] MEDS: DOCUSATE SODIUM 100 MG CAPSULE PO SCH (22:04)
[2017-12-12] MEDS ORDERED: LEVOTHYROXINE 25 MCG TABLET PO SCH (06:00)
[2017-12-12] MEDS: SODIUM CHLORIDE 0.9% 1,000 ML IV SCH ×3 (07:48→16:29)
[2017-12-12] MEDS ORDERED: LOSARTAN 25 MG TABLET PO SCH (08:00)
[2017-12-12] MEDS ORDERED: NON-FORMULARY MEDICATION (Memantine Hcl [Namenda Xr] 28 MG) PO SCH (08:00)
[2017-12-12] MEDS ORDERED: ASPIRIN EC 81 MG TABLET PO SCH (08:00)
[2017-12-12] MEDS ORDERED: MAGNESIUM HYDROXIDE SUSP 30 ML UDCUP PO SCH (09:00)
[2017-12-12] MEDS ORDERED: PANTOPRAZOLE 40 MG TABLET PO SCH (09:00)
[2017-12-12] MEDS: LEVOFLOXACIN INJ 250 MG in PREMIX 1 EACH IV SCH (10:02)
[2017-12-12] MEDS: DOCUSATE SODIUM 100 MG CAPSULE PO SCH ×2 (10:03→22:41)
[2017-12-12] MEDS: PANTOPRAZOLE 40 MG TABLET PO SCH (10:04)
[2017-12-12] MEDS: DEXTROSE 50% 25 GM/50 ML VIAL IV PRN (21:03)
[2017-12-13] MEDS: SODIUM CHLORIDE 0.9% 1,000 ML IV SCH ×4 (00:27→19:31)
[2017-12-13] MEDS: DEXTROSE 50% 25 GM/50 ML VIAL IV PRN (07:44)
[2017-12-13 08:05] LABS: Basophils % 0.1 % (0.0-0.8); Eosinophils # 0.1 10*3/uL (0.0-0.87); Eosinophils % 1.8 % (0.00-10.9); Hematocrit 32.8 VOL% (35.7-47.0); Hemoglobin 10.4 GM/DL (12.0-16.0); Immature Granulocytes % 0.6 %; Immature Granulocytes Absolute 0.04 #; Lymphocytes # 1.2 10*3/uL (1.4-4.0); Mean Corpuscular HGB Conc 31.7 GM/DL (32-36); Mean Corpuscular Hemoglobin 28 PG (27-34); Mean Corpuscular Volume 87.2 FL (87-102); Monocytes # 0.8 10*3/uL (0.11-0.8); Monocytes % 11.3 % (1.7-12.7); Neutrophils # 4.9 10*3/uL (1.4-7.4); Neutrophils % 69.2 % (38.7-73.9); Platelet Count 122 T/CUMM (130-400); Red Blood Count 3.76 MC/CUMM (3.8-5.5); White Blood Count 7.1 T/CUMM (4-12)
[2017-12-13 08:15] LABS: PT Patient Result 10.6 SECS
[2017-12-13] MEDS: DOCUSATE SODIUM 100 MG CAPSULE PO SCH ×2 (08:25→23:33)
[2017-12-13] MEDS: LEVOFLOXACIN INJ 250 MG in PREMIX 1 EACH IV SCH (08:25)
[2017-12-13] MEDS: PANTOPRAZOLE 40 MG TABLET PO SCH (08:26)
[2017-12-13 08:36] LABS: Calcium 9.2 MG/DL (8.5-10.1); Osmolality,Calculated 290.4 MOS/KG (273-304); Potassium 4.5 MMOL/L (3.5-5.1)
[2017-12-13] MEDS ORDERED: PROPOFOL 200 MG/20 ML VIAL IV ONE (13:15)
[2017-12-13] MEDS ORDERED: LIDOCAINE 2% 5 ML VIAL ONE (13:15)
[2017-12-13] MEDS: cefTRIAXone 1,000 MG in SYRINGE 1 EACH IV SCH (15:27)
[2017-12-14] MEDS: SODIUM CHLORIDE 0.9% 1,000 ML IV SCH (03:35)
[2017-12-14 06:43] LABS: Calcium 6.3 MG/DL (8.5-10.1); Osmolality,Calculated 296.7 MOS/KG (273-304); Potassium 2.9 MMOL/L (3.5-5.1); Prealbumin 8.5 MG/DL (20-40)
[2017-12-14] MEDS ORDERED: DEXTROSE 50% 25 GM/50 ML VIAL IV ONE (07:12)
[2017-12-14] MEDS ORDERED: DEXTROSE 50% 25 GM/50 ML VIAL IV PRN (07:39)
[2017-12-14] MEDS: DOCUSATE SODIUM 100 MG CAPSULE PO SCH ×2 (09:00→21:44)
[2017-12-14] MEDS ORDERED: POTASSIUM PHOSPHATE 20 MMOL in SODIUM CHLORIDE 0.9% 100 ML IV ONE (09:00)
[2017-12-14] MEDS: PANTOPRAZOLE 40 MG TABLET PO SCH (09:00)
[2017-12-14] MEDS: SODIUM CHLORIDE 0.45% 1,000 ML IV SCH ×3 (09:18→22:19)
[2017-12-14] MEDS: LEVOFLOXACIN INJ 250 MG in PREMIX 1 EACH IV SCH (09:18)
[2017-12-14] MEDS ORDERED: LOSARTAN 25 MG TABLET PO SCH (16:00)
[2017-12-14] MEDS ORDERED: cloNIDine 0.1 MG TABLET PO ONE (18:03)
[2017-12-14] MEDS ORDERED: LOSARTAN 25 MG TABLET PO ONE (18:30)
[2017-12-14] MEDS ORDERED: hydrALAZINE 25 MG TABLET PO ONE (20:36)
[2017-12-14] MEDS: cefTRIAXone 1,000 MG in SYRINGE 1 EACH IV SCH (21:41)
[2017-12-14] MEDS ORDERED: TEMAZEPAM 7.5 MG CAPSULE PO PRN (23:41)
[2017-12-15] MEDS: SODIUM CHLORIDE 0.45% 1,000 ML IV SCH (01:45)
[2017-12-15] MEDS ORDERED: LOSARTAN 50 MG TABLET PO SCH (09:00)
[2017-12-15] MEDS: DOCUSATE SODIUM 100 MG CAPSULE PO SCH (11:36)
[2017-12-15] MEDS: LEVOFLOXACIN INJ 250 MG in PREMIX 1 EACH IV SCH (11:37)
[2017-12-15] MEDS: PANTOPRAZOLE 40 MG TABLET PO SCH (11:47)
[2017-12-15 13:22] VITALS: BP 190/83
== END 2017-12-15 12:06 | DRG 689 ==
LOC: EDBD → EDUNIT# → N.ED 11:46 → N.EDINP 11:46 → INTOOBSV 14:23 → OBSVTOIN 15:13 → N.2E 15:53
PROVIDERS: ADMIT Internal Medicine; ATTEND Internal Medicine
PROC: EGDWPEG (ICD-10-PCS; 2017-12-13 12:20)

== ENCOUNTER 2020-12-30 11:41 | Inpatient (IN) ==
[2020-12-30 13:15] LABS: Albumin 3.7 G/DL (3.4-5.0); Bilirubin,Total 0.6 MG/DL (0.20-1.00); Calcium 10.3 MG/DL (8.5-10.1); Osmolality,Calculated 288.3 MOS/KG (273-304); Potassium 5.1 MMOL/L (3.5-5.1)
[2020-12-30 13:36] LABS: Bacteria,Urine Many /HPF (Few); Bilirubin,Urine Negative (Negative); Blood, Urine Small mg/dL (Negative); Glucose,Urine (UA) Negative (Negative); Ketones,Urine Negative (Negative); Mucus,Urine Occasional /LPF (Occasional); Nitrite,Urine Positive (Negative); Protein,Urine 30 MG/DL; RBC,Urine 16 /HPF (0-4); Squamous Epithelial Cell,Urine Occasional /HPF (0-10); Urine Appearance CLOUDY (Clear); Urine Color Yellow (Yellow); Urine Specific Gravity 1.013 (1.001-1.035); Urine Urobilinogen < 2.0 EU/DL (0.2-1.0)
[2020-12-30 14:57] LABS: Basophils % 0.3 % (0.0-0.8); Eosinophils # 0.1 10*3/uL (0.0-0.87); Eosinophils % 1.4 % (0.00-10.9); Hemoglobin 13.3 GM/DL (12.0-16.0); Immature Granulocytes % 0.3 %; Immature Granulocytes Absolute 0.02 #; Lymphocytes % 28.1 % (21.3-54.2); Mean Corpuscular HGB Conc 32.4 GM/DL (32-36); Mean Corpuscular Volume 83.5 FL (87-102); Monocytes % 7.2 % (1.7-12.7); Neutrophils % 62.7 % (38.7-73.9); Platelet Count 178 T/CUMM (130-400); Red Blood Count 4.91 MC/CUMM (3.8-5.5); Red Cell Distribution Width 15.7 % (9.3-17.3)
[2020-12-30] MEDS ORDERED: cefTRIAXone 1,000 MG in SODIUM CHLORIDE 0.9% 100 ML IV STA (15:41)
[2020-12-30] MEDS ORDERED: DEXTROSE 50% 25 GM/50 ML VIAL IV PRN (16:10)
[2020-12-30] MEDS ORDERED: ACETAMINOPHEN 325 MG TABLET PO PRN (16:10)
[2020-12-30] MEDS ORDERED: ONDANSETRON 4 MG/2 ML VIAL IV PRN (16:10)
[2020-12-30] MEDS ORDERED: GLUCAGON 1 MG VIAL IM PRN (16:10)
[2020-12-30] MEDS: SODIUM CHLORIDE 0.9% 1,000 ML IV SCH (17:48)
[2020-12-30] MEDS: INSULIN REGULAR 100 UNIT/ML SUBCUT SCH ×2 (17:48→22:25)
[2020-12-30] MEDS: DONEPEZIL 10 MG TABLET PO SCH (22:26)
[2020-12-30] MEDS: DOCUSATE SODIUM 100 MG CAPSULE PO SCH (22:26)
[2020-12-30] MEDS: ATORVASTATIN 10 MG TABLET PO SCH (22:27)
[2020-12-30] MEDS: FOOD SUPPLEMT LACTOSE REDUCED PO SCH (22:27)
[2020-12-30] MEDS: APIXABAN 5 MG TABLET PO SCH (22:27)
[2020-12-31] MEDS: LEVOTHYROXINE 25 MCG TABLET PO SCH (05:40)
[2020-12-31 07:06] LABS: Basophils % 0.2 % (0.0-0.8); Eosinophils # 0.1 10*3/uL (0.0-0.87); Eosinophils % 0.9 % (0.00-10.9); Hematocrit 35.9 VOL% (35.7-47.0); Hemoglobin 11.9 GM/DL (12.0-16.0); Immature Granulocytes % 0.3 %; Immature Granulocytes Absolute 0.02 #; Lymphocytes # 2.3 10*3/uL (1.4-4.0); Mean Corpuscular HGB Conc 33.1 GM/DL (32-36); Mean Corpuscular Volume 82.3 FL (87-102); Mean Platelet Volume 11.2 FL (9.6-12.0); Monocytes % 8.9 % (1.7-12.7); Neutrophils % 49.7 % (38.7-73.9); Platelet Count 165 T/CUMM (130-400); Red Blood Count 4.36 MC/CUMM (3.8-5.5); Red Cell Distribution Width 15.8 % (9.3-17.3); White Blood Count 5.7 T/CUMM (4-12)
[2020-12-31 07:26] LABS: Albumin 3.3 G/DL (3.4-5.0); Bilirubin,Total 0.4 MG/DL (0.20-1.00); Calcium 9.5 MG/DL (8.5-10.1); Osmolality,Calculated 291.8 MOS/KG (273-304); Potassium 3.7 MMOL/L (3.5-5.1); Total Protein 7.7 G/DL (6.4-8.2)
[2020-12-31] MEDS: LACTULOSE 20 GM/30 ML UDCUP PO SCH (09:39)
[2020-12-31] MEDS: ASPIRIN CHEW 81 MG TABLET PO SCH (09:40)
[2020-12-31] MEDS: PANTOPRAZOLE 40 MG TABLET PO SCH (09:40)
[2020-12-31] MEDS: APIXABAN 5 MG TABLET PO SCH ×2 (09:40→20:35)
[2020-12-31] MEDS: DOCUSATE SODIUM 100 MG CAPSULE PO SCH ×2 (09:40→20:42)
[2020-12-31] MEDS: POLYETHYLENE GLYCOL POWDER 17 GM PACK PO SCH (09:40)
[2020-12-31] MEDS: INSULIN REGULAR 100 UNIT/ML SUBCUT SCH ×4 (09:42→20:36)
[2020-12-31] MEDS: FOOD SUPPLEMT LACTOSE REDUCED PO SCH ×2 (09:42→20:42)
[2020-12-31] MEDS: SODIUM CHLORIDE 0.9% 1,000 ML IV SCH (10:30)
[2020-12-31] MEDS: LACTATED RINGERS 1,000 ML IV SCH (14:36)
[2020-12-31] MEDS: cefTRIAXone 1,000 MG in SODIUM CHLORIDE 0.9% 100 ML IV SCH (16:07)
[2020-12-31] MEDS: ATORVASTATIN 10 MG TABLET PO SCH (20:35)
[2020-12-31] MEDS: DONEPEZIL 10 MG TABLET PO SCH (20:42)
[2021-01-01 05:50] LABS: Basophils % 0.4 % (0.0-0.8); Eosinophils # 0.1 10*3/uL (0.0-0.87); Hematocrit 35.1 VOL% (35.7-47.0); Hemoglobin 11.5 GM/DL (12.0-16.0); Immature Granulocytes % 0.6 %; Immature Granulocytes Absolute 0.03 #; Lymphocytes % 37.9 % (21.3-54.2); Mean Corpuscular HGB Conc 32.8 GM/DL (32-36); Mean Corpuscular Volume 84.6 FL (87-102); Mean Platelet Volume 11.5 FL (9.6-12.0); Neutrophils % 51.1 % (38.7-73.9); Platelet Count 148 T/CUMM (130-400); Red Blood Count 4.15 MC/CUMM (3.8-5.5); Red Cell Distribution Width 16.2 % (9.3-17.3); White Blood Count 5.2 T/CUMM (4-12)
[2021-01-01] MEDS: LEVOTHYROXINE 25 MCG TABLET PO SCH (06:20)
[2021-01-01] MEDS: LACTATED RINGERS 1,000 ML IV SCH (06:20)
[2021-01-01 06:21] LABS: Calcium 9.6 MG/DL (8.5-10.1); Osmolality,Calculated 294.7 MOS/KG (273-304); Potassium 4.1 MMOL/L (3.5-5.1)
[2021-01-01] MEDS: PANTOPRAZOLE 40 MG TABLET PO SCH (08:52)
[2021-01-01] MEDS: DOCUSATE SODIUM 100 MG CAPSULE PO SCH ×2 (08:52→20:57)
[2021-01-01] MEDS: POLYETHYLENE GLYCOL POWDER 17 GM PACK PO SCH (08:52)
[2021-01-01] MEDS: APIXABAN 5 MG TABLET PO SCH ×2 (08:52→20:56)
[2021-01-01] MEDS: ASPIRIN CHEW 81 MG TABLET PO SCH (08:52)
[2021-01-01] MEDS: FOOD SUPPLEMT LACTOSE REDUCED PO SCH ×2 (08:53→20:58)
[2021-01-01] MEDS: INSULIN REGULAR 100 UNIT/ML SUBCUT SCH ×4 (09:30→20:57)
[2021-01-01] MEDS: cefTRIAXone 1,000 MG in SODIUM CHLORIDE 0.9% 100 ML IV SCH (16:07)
[2021-01-01] MEDS ORDERED: traZODone 50 MG TABLET PO PRN (17:08)
[2021-01-01] MEDS: ATORVASTATIN 10 MG TABLET PO SCH (20:57)
[2021-01-01] MEDS: DONEPEZIL 10 MG TABLET PO SCH (20:57)
[2021-01-02] MEDS: LEVOTHYROXINE 25 MCG TABLET PO SCH (05:48)
[2021-01-02] MEDS: LACTATED RINGERS 1,000 ML IV SCH ×3 (05:50→16:48)
[2021-01-02 06:41] LABS: Basophils % 0.3 % (0.0-0.8); Eosinophils # 0.1 10*3/uL (0.0-0.87); Eosinophils % 1.6 % (0.00-10.9); Hemoglobin 10.7 GM/DL (12.0-16.0); Immature Granulocytes % 0.3 %; Immature Granulocytes Absolute 0.02 #; Lymphocytes % 32.5 % (21.3-54.2); Mean Corpuscular HGB Conc 32.4 GM/DL (32-36); Mean Corpuscular Volume 84.4 FL (87-102); Monocytes % 8.1 % (1.7-12.7); Neutrophils % 57.2 % (38.7-73.9); Platelet Count 149 T/CUMM (130-400); Red Blood Count 3.91 MC/CUMM (3.8-5.5); Red Cell Distribution Width 16.1 % (9.3-17.3); White Blood Count 6.2 T/CUMM (4-12)
[2021-01-02 07:01] LABS: Calcium 9.7 MG/DL (8.5-10.1); Osmolality,Calculated 297.3 MOS/KG (273-304); Potassium 4.2 MMOL/L (3.5-5.1)
[2021-01-02] MEDS: ASPIRIN CHEW 81 MG TABLET PO SCH (09:40)
[2021-01-02] MEDS: PANTOPRAZOLE 40 MG TABLET PO SCH (09:40)
[2021-01-02] MEDS: INSULIN REGULAR 100 UNIT/ML SUBCUT SCH ×4 (09:40→22:48)
[2021-01-02] MEDS: APIXABAN 5 MG TABLET PO SCH ×2 (09:40→21:43)
[2021-01-02] MEDS: POLYETHYLENE GLYCOL POWDER 17 GM PACK PO SCH (09:41)
[2021-01-02] MEDS: DOCUSATE SODIUM 100 MG/10 ML UDCUP PO SCH ×2 (09:55→21:43)
[2021-01-02] MEDS: FOOD SUPPLEMT LACTOSE REDUCED PO SCH ×2 (11:16→22:48)
[2021-01-02] MEDS: DOCUSATE SODIUM 100 MG CAPSULE PO SCH (11:17)
[2021-01-02] MEDS: ERTAPENEM 1,000 MG in SODIUM CHLORIDE 0.9% 100 ML IV SCH (13:45)
[2021-01-02] MEDS: ATORVASTATIN 10 MG TABLET PO SCH (21:43)
[2021-01-02] MEDS: DONEPEZIL 10 MG TABLET PO SCH (22:48)
[2021-01-03 05:43] LABS: Basophils % 0.5 % (0.0-0.8); Eosinophils # 0.1 10*3/uL (0.0-0.87); Eosinophils % 2.3 % (0.00-10.9); Hematocrit 33.7 VOL% (35.7-47.0); Hemoglobin 11.1 GM/DL (12.0-16.0); Immature Granulocytes % 0.3 %; Immature Granulocytes Absolute 0.02 #; Lymphocytes # 2.5 10*3/uL (1.4-4.0); Lymphocytes % 40.7 % (21.3-54.2); Mean Corpuscular HGB Conc 32.9 GM/DL (32-36); Mean Corpuscular Volume 83.6 FL (87-102); Mean Platelet Volume 11.7 FL (9.6-12.0); Monocytes % 7.8 % (1.7-12.7); Neutrophils % 48.4 % (38.7-73.9); Platelet Count 159 T/CUMM (130-400); Red Blood Count 4.03 MC/CUMM (3.8-5.5); Red Cell Distribution Width 16.2 % (9.3-17.3); White Blood Count 6.1 T/CUMM (4-12)
[2021-01-03] MEDS: LEVOTHYROXINE 25 MCG TABLET PO SCH (05:43)
[2021-01-03 06:04] LABS: Calcium 9.1 MG/DL (8.5-10.1); Osmolality,Calculated 299.3 MOS/KG (273-304); Potassium 4.7 MMOL/L (3.5-5.1)
[2021-01-03] MEDS: INSULIN REGULAR 100 UNIT/ML SUBCUT SCH ×4 (07:43→20:57)
[2021-01-03] MEDS: LACTATED RINGERS 1,000 ML IV SCH ×3 (07:44→22:50)
[2021-01-03] MEDS: DOCUSATE SODIUM 100 MG/10 ML UDCUP PO SCH ×2 (08:33→20:51)
[2021-01-03] MEDS: APIXABAN 5 MG TABLET PO SCH ×2 (08:33→20:51)
[2021-01-03] MEDS: LACTULOSE 20 GM/30 ML UDCUP PO SCH (08:33)
[2021-01-03] MEDS: PANTOPRAZOLE 40 MG TABLET PO SCH (08:33)
[2021-01-03] MEDS: ASPIRIN CHEW 81 MG TABLET PO SCH (08:33)
[2021-01-03] MEDS: POLYETHYLENE GLYCOL POWDER 17 GM PACK PO SCH (08:47)
[2021-01-03] MEDS: FOOD SUPPLEMT LACTOSE REDUCED PO SCH ×2 (08:47→21:52)
[2021-01-03] MEDS ORDERED: DEXTROSE 5% LACTATED RINGERS 500 ML IV ONE (10:30)
[2021-01-03] MEDS: ERTAPENEM 1,000 MG in SODIUM CHLORIDE 0.9% 100 ML IV SCH (12:53)
[2021-01-03] MEDS: ATORVASTATIN 10 MG TABLET PO SCH (20:52)
[2021-01-03] MEDS: DONEPEZIL 10 MG TABLET PO SCH (20:52)
[2021-01-04] MEDS: LEVOTHYROXINE 25 MCG TABLET PO SCH (05:25)
[2021-01-04 05:54] LABS: Calcium 9.1 MG/DL (8.5-10.1); Osmolality,Calculated 294.6 MOS/KG (273-304); Potassium 4.2 MMOL/L (3.5-5.1)
[2021-01-04] MEDS: INSULIN REGULAR 100 UNIT/ML SUBCUT SCH ×4 (07:45→21:29)
[2021-01-04] MEDS: ASPIRIN CHEW 81 MG TABLET PO SCH (08:10)
[2021-01-04] MEDS: POLYETHYLENE GLYCOL POWDER 17 GM PACK PO SCH (08:10)
[2021-01-04] MEDS: APIXABAN 5 MG TABLET PO SCH ×2 (08:10→20:40)
[2021-01-04] MEDS: DOCUSATE SODIUM 100 MG/10 ML UDCUP PO SCH ×2 (08:10→20:40)
[2021-01-04] MEDS: PANTOPRAZOLE 40 MG TABLET PO SCH (08:11)
[2021-01-04] MEDS: FOOD SUPPLEMT LACTOSE REDUCED PO SCH ×2 (09:03→20:51)
[2021-01-04] MEDS: LACTATED RINGERS 1,000 ML IV SCH ×2 (09:03→12:44)
[2021-01-04] MEDS: ERTAPENEM 1,000 MG in SODIUM CHLORIDE 0.9% 100 ML IV SCH ×2 (12:44→13:23)
[2021-01-04] MEDS: ATORVASTATIN 10 MG TABLET PO SCH (20:40)
[2021-01-04] MEDS: DONEPEZIL 10 MG TABLET PO SCH (20:40)
[2021-01-05] MEDS: LACTATED RINGERS 1,000 ML IV SCH ×2 (01:22→15:48)
[2021-01-05] MEDS: LEVOTHYROXINE 25 MCG TABLET PO SCH (05:42)
[2021-01-05 06:28] LABS: Calcium 8.7 MG/DL (8.5-10.1); Osmolality,Calculated 296.4 MOS/KG (273-304)
[2021-01-05] MEDS: INSULIN REGULAR 100 UNIT/ML SUBCUT SCH ×4 (07:49→22:08)
[2021-01-05] MEDS: ASPIRIN CHEW 81 MG TABLET PO SCH (08:51)
[2021-01-05] MEDS: DOCUSATE SODIUM 100 MG/10 ML UDCUP PO SCH ×2 (08:52→22:07)
[2021-01-05] MEDS: LACTULOSE 20 GM/30 ML UDCUP PO SCH (08:52)
[2021-01-05] MEDS: PANTOPRAZOLE 40 MG TABLET PO SCH (08:52)
[2021-01-05] MEDS: POLYETHYLENE GLYCOL POWDER 17 GM PACK PO SCH (08:52)
[2021-01-05] MEDS: APIXABAN 5 MG TABLET PO SCH ×2 (08:52→22:07)
[2021-01-05] MEDS: FOOD SUPPLEMT LACTOSE REDUCED PO SCH ×2 (08:58→22:08)
[2021-01-05] MEDS: ERTAPENEM 1,000 MG in SODIUM CHLORIDE 0.9% 100 ML IV SCH (12:12)
[2021-01-05] MEDS: DONEPEZIL 10 MG TABLET PO SCH (22:07)
[2021-01-05] MEDS: ATORVASTATIN 10 MG TABLET PO SCH (22:07)
[2021-01-06 05:36] LABS: Basophils % 0.2 % (0.0-0.8); Eosinophils # 0.2 10*3/uL (0.0-0.87); Eosinophils % 1.9 % (0.00-10.9); Hematocrit 34.4 VOL% (35.7-47.0); Hemoglobin 11.2 GM/DL (12.0-16.0); Immature Granulocytes % 0.4 %; Immature Granulocytes Absolute 0.03 #; Lymphocytes # 2.3 10*3/uL (1.4-4.0); Mean Corpuscular HGB Conc 32.6 GM/DL (32-36); Mean Corpuscular Volume 84.3 FL (87-102); Mean Platelet Volume 11.3 FL (9.6-12.0); Neutrophils % 59.5 % (38.7-73.9); Platelet Count 164 T/CUMM (130-400); Red Blood Count 4.08 MC/CUMM (3.8-5.5); Red Cell Distribution Width 15.9 % (9.3-17.3); White Blood Count 8.3 T/CUMM (4-12)
[2021-01-06] MEDS: LACTATED RINGERS 1,000 ML IV SCH ×2 (05:49→22:00)
[2021-01-06] MEDS: LEVOTHYROXINE 25 MCG TABLET PO SCH (05:49)
[2021-01-06 05:53] LABS: Calcium 9.1 MG/DL (8.5-10.1); Osmolality,Calculated 288.8 MOS/KG (273-304); Potassium 3.9 MMOL/L (3.5-5.1)
[2021-01-06] MEDS: ASPIRIN CHEW 81 MG TABLET PO SCH (08:35)
[2021-01-06] MEDS: PANTOPRAZOLE 40 MG TABLET PO SCH (08:35)
[2021-01-06] MEDS: APIXABAN 5 MG TABLET PO SCH ×2 (08:35→21:59)
[2021-01-06] MEDS: POLYETHYLENE GLYCOL POWDER 17 GM PACK PO SCH (08:47)
[2021-01-06] MEDS: FOOD SUPPLEMT LACTOSE REDUCED PO SCH ×2 (08:47→22:35)
[2021-01-06] MEDS: DOCUSATE SODIUM 100 MG/10 ML UDCUP PO SCH ×2 (08:47→22:35)
[2021-01-06] MEDS: INSULIN REGULAR 100 UNIT/ML SUBCUT SCH ×4 (09:22→23:13)
[2021-01-06] MEDS: ERTAPENEM 1,000 MG in SODIUM CHLORIDE 0.9% 100 ML IV SCH (12:21)
[2021-01-06] MEDS: ATORVASTATIN 10 MG TABLET PO SCH (21:59)
[2021-01-06] MEDS: DONEPEZIL 10 MG TABLET PO SCH (21:59)
[2021-01-07] MEDS: LEVOTHYROXINE 25 MCG TABLET PO SCH (05:43)
[2021-01-07] MEDS: DOCUSATE SODIUM 100 MG/10 ML UDCUP PO SCH (07:32)
[2021-01-07] MEDS: LACTULOSE 20 GM/30 ML UDCUP PO SCH (07:32)
[2021-01-07] MEDS: POLYETHYLENE GLYCOL POWDER 17 GM PACK PO SCH (07:32)
[2021-01-07] MEDS: INSULIN REGULAR 100 UNIT/ML SUBCUT SCH ×2 (08:28→11:48)
[2021-01-07] MEDS: APIXABAN 5 MG TABLET PO SCH (09:13)
[2021-01-07] MEDS: PANTOPRAZOLE 40 MG TABLET PO SCH (09:13)
[2021-01-07] MEDS: ASPIRIN CHEW 81 MG TABLET PO SCH (09:13)
[2021-01-07] MEDS: FOOD SUPPLEMT LACTOSE REDUCED PO SCH (09:14)
[2021-01-07] MEDS: LACTATED RINGERS 1,000 ML IV SCH (09:25)
[2021-01-07 11:59] VITALS: BP 147/76
[2021-01-07] MEDS: ERTAPENEM 1,000 MG in SODIUM CHLORIDE 0.9% 100 ML IV SCH (12:37)
== END 2021-01-07 15:49 | DRG 690 ==
LOC: EDUNIT# → EDBD → N.ED 11:41 → N.EDINP 11:41 → SUATTDRO 15:41 → N.EDINP 21:34 → N.3E 21:47 → SUATTDRO 01-01 21:31
PROVIDERS: ADMIT Internal Medicine; ATTEND Internal Medicine

== ENCOUNTER 2021-05-10 08:17 | Inpatient (IN) ==
[2021-05-10] MEDS ORDERED: SODIUM CHLORIDE 0.9% 500 ML IV STA (08:32)
[2021-05-10 09:10] LABS: Basophils % 0.4 % (0.0-0.8); Eosinophils # 0.4 10*3/uL (0.0-0.87); Eosinophils % 7.4 % (0.00-10.9); Hematocrit 33.4 VOL% (35.7-47.0); Hemoglobin 10.6 GM/DL (12.0-16.0); Immature Granulocytes % 0.4 %; Immature Granulocytes Absolute 0.02 #; Lymphocytes # 2.4 10*3/uL (1.4-4.0); Lymphocytes % 45.6 % (21.3-54.2); Mean Corpuscular HGB Conc 31.7 GM/DL (32-36); Mean Corpuscular Volume 87.2 FL (87-102); Mean Platelet Volume 10.9 FL (9.6-12.0); Neutrophils % 34.2 % (38.7-73.9); Platelet Count 145 T/CUMM (130-400); Red Blood Count 3.83 MC/CUMM (3.8-5.5); Red Cell Distribution Width 15.9 % (9.3-17.3); White Blood Count 5.2 T/CUMM (4-12)
[2021-05-10 09:31] LABS: Eosinophils 9 % (0-10); Hypochromasia 2+; Lymphocytes 54 % (20-55); Microcytosis 1+; Segmented Neutrophils 26 % (50-85); Total Cells Counted 100
[2021-05-10 09:32] LABS: Atypical Lymphocytes Few; Platelet Estimate Adequate
[2021-05-10 09:39] LABS: Alanine Aminotransferase 51 U/L (13-56); Albumin 2.8 G/DL (3.4-5.0); Alkaline Phosphatase 66 U/L (45-117); Aspartate Amino Transferase 21 U/L (0-37); Bilirubin,Total < 0.39 MG/DL (0.20-1.00); Blood Urea Nitrogen 19 MG/DL (7-18); Calcium 9.2 MG/DL (8.5-10.1); Carbon Dioxide 26 MMOL/L (21-32); Estimated Glom Filtration Rate 51 ML/MIN; Glucose 101 MG/DL (74-106); Potassium 4.5 MMOL/L (3.5-5.1); Sodium 143 MMOL/L (136-145)
[2021-05-10 09:58] LABS: Bacteria,Urine Many /HPF (Few); Bilirubin,Urine Negative (Negative); Blood, Urine Negative (Negative); Glucose,Urine (UA) Negative (Negative); Ketones,Urine Negative (Negative); Nitrite,Urine Negative (Negative); Protein,Urine Negative; RBC,Urine 11 /HPF (0-4); Squamous Epithelial Cell,Urine Occasional /HPF (0-10); Urine Appearance CLOUDY (Clear); Urine Color Yellow (Yellow); Urine Specific Gravity 1.009 (1.001-1.035); Urine Urobilinogen < 2.0 EU/DL (0.2-1.0)
[2021-05-10] MEDS ORDERED: cefTRIAXone 1,000 MG in SODIUM CHLORIDE 0.9% 100 ML IV STA (11:11)
[2021-05-10] MEDS ORDERED: ONDANSETRON 4 MG/2 ML VIAL IV PRN (13:27)
[2021-05-10] MEDS ORDERED: GLUCAGON 1 MG VIAL IM PRN (13:27)
[2021-05-10] MEDS ORDERED: DEXTROSE 50% 25 GM/50 ML SYRINGE IV PRN (13:27)
[2021-05-10] MEDS ORDERED: hydrALAZINE 20 MG/1 ML VIAL IV PRN (13:27)
[2021-05-10] MEDS ORDERED: ACETAMINOPHEN 325 MG TABLET PO PRN (13:27)
[2021-05-10] MEDS ORDERED: ENOXAPARIN 40 MG/0.4 ML SYRINGE SUBCUT SCH (13:30)
[2021-05-10] MEDS: LACTATED RINGERS 1,000 ML IV SCH (16:58)
[2021-05-10] MEDS: INSULIN LISPRO 100 UNIT/ML SUBCUT SCH ×2 (16:59→22:22)
[2021-05-10] MEDS: ERTAPENEM 1,000 MG in SODIUM CHLORIDE 0.9% 100 ML IV SCH (22:21)
[2021-05-10] MEDS: ATORVASTATIN 10 MG TABLET PEG SCH (22:22)
[2021-05-10] MEDS: OMEPRAZOLE ODT 20 MG TABLET PEG SCH (22:22)
[2021-05-10] MEDS: APIXABAN 5 MG TABLET PEG SCH (22:22)
[2021-05-11] MEDS: LACTATED RINGERS 1,000 ML IV SCH ×2 (03:45→17:15)
[2021-05-11] MEDS: OMEPRAZOLE ODT 20 MG TABLET PEG SCH ×2 (05:36→20:58)
[2021-05-11] MEDS: LEVOTHYROXINE 25 MCG TABLET PEG SCH (05:37)
[2021-05-11 06:30] LABS: Basophils % 0.6 % (0.0-0.8); Eosinophils # 0.3 10*3/uL (0.0-0.87); Eosinophils % 5.9 % (0.00-10.9); Hematocrit 33.8 VOL% (35.7-47.0); Immature Granulocytes % 0.2 %; Immature Granulocytes Absolute 0.01 #; Lymphocytes # 2.1 10*3/uL (1.4-4.0); Lymphocytes % 38.4 % (21.3-54.2); Mean Corpuscular HGB Conc 32.5 GM/DL (32-36); Mean Corpuscular Volume 86.9 FL (87-102); Mean Platelet Volume 11.2 FL (9.6-12.0); Monocytes % 11.3 % (1.7-12.7); Neutrophils % 43.6 % (38.7-73.9); Platelet Count 156 T/CUMM (130-400); Red Blood Count 3.89 MC/CUMM (3.8-5.5); Red Cell Distribution Width 15.8 % (9.3-17.3); White Blood Count 5.4 T/CUMM (4-12)
[2021-05-11 06:54] LABS: Calcium 9.7 MG/DL (8.5-10.1); Potassium 4.3 MMOL/L (3.5-5.1)
[2021-05-11] MEDS: INSULIN LISPRO 100 UNIT/ML SUBCUT SCH ×4 (07:15→20:59)
[2021-05-11] MEDS ORDERED: PANTOPRAZOLE 40 MG TABLET PO SCH (09:00)
[2021-05-11] MEDS: POLYETHYLENE GLYCOL POWDER 17 GM PACK PEG SCH (09:03)
[2021-05-11] MEDS: APIXABAN 5 MG TABLET PEG SCH ×2 (09:03→20:58)
[2021-05-11] MEDS: ASPIRIN CHEW 81 MG TABLET PO SCH (09:03)
[2021-05-11 10:04] LABS: % Iron Saturation 23.3 % (18-50)
[2021-05-11] MEDS: ATORVASTATIN 10 MG TABLET PEG SCH (20:58)
[2021-05-12] MEDS: ERTAPENEM 1,000 MG in SODIUM CHLORIDE 0.9% 100 ML IV SCH ×2 (00:38→22:09)
[2021-05-12] MEDS: LEVOTHYROXINE 25 MCG TABLET PEG SCH (06:01)
[2021-05-12] MEDS: OMEPRAZOLE ODT 20 MG TABLET PEG SCH ×2 (06:02→22:09)
[2021-05-12 06:21] LABS: Basophils % 0.5 % (0.0-0.8); Eosinophils # 0.3 10*3/uL (0.0-0.87); Eosinophils % 5.5 % (0.00-10.9); Hematocrit 32.6 VOL% (35.7-47.0); Hemoglobin 10.8 GM/DL (12.0-16.0); Immature Granulocytes % 0.3 %; Immature Granulocytes Absolute 0.02 #; Lymphocytes # 2.7 10*3/uL (1.4-4.0); Lymphocytes % 46.5 % (21.3-54.2); Mean Corpuscular HGB Conc 33.1 GM/DL (32-36); Mean Corpuscular Volume 86.7 FL (87-102); Monocytes % 11.4 % (1.7-12.7); Neutrophils % 35.8 % (38.7-73.9); Platelet Count 141 T/CUMM (130-400); Red Blood Count 3.76 MC/CUMM (3.8-5.5); Red Cell Distribution Width 15.8 % (9.3-17.3); White Blood Count 5.8 T/CUMM (4-12)
[2021-05-12 06:41] LABS: Calcium 9.4 MG/DL (8.5-10.1)
[2021-05-12 06:46] LABS: Eosinophils 2 % (0-10); Lymphocytes 37 % (20-55); Metamyelocytes 2 %; Segmented Neutrophils 53 % (50-85); Total Cells Counted 100
[2021-05-12 06:47] LABS: Platelet Estimate Adequate
[2021-05-12] MEDS: INSULIN LISPRO 100 UNIT/ML SUBCUT SCH ×4 (08:03→20:28)
[2021-05-12] MEDS: APIXABAN 5 MG TABLET PEG SCH ×2 (09:29→22:09)
[2021-05-12] MEDS: ASPIRIN CHEW 81 MG TABLET PO SCH (09:29)
[2021-05-12] MEDS: POLYETHYLENE GLYCOL POWDER 17 GM PACK PEG SCH (09:30)
[2021-05-12] MEDS: LACTATED RINGERS 1,000 ML IV SCH ×2 (09:33→11:31)
[2021-05-12] MEDS: ATORVASTATIN 10 MG TABLET PEG SCH (22:09)
[2021-05-13] MEDS: LACTATED RINGERS 1,000 ML IV SCH ×4 (01:04→23:50)
[2021-05-13 05:20] LABS: Basophils % 0.5 % (0.0-0.8); Eosinophils # 0.4 10*3/uL (0.0-0.87); Hematocrit 34.3 VOL% (35.7-47.0); Hemoglobin 10.9 GM/DL (12.0-16.0); Immature Granulocytes % 0.3 %; Immature Granulocytes Absolute 0.02 #; Lymphocytes # 2.3 10*3/uL (1.4-4.0); Lymphocytes % 35.4 % (21.3-54.2); Mean Corpuscular HGB Conc 31.8 GM/DL (32-36); Mean Corpuscular Volume 86.2 FL (87-102); Mean Platelet Volume 10.7 FL (9.6-12.0); Monocytes % 11.7 % (1.7-12.7); Neutrophils % 46.1 % (38.7-73.9); Platelet Count 143 T/CUMM (130-400); Red Blood Count 3.98 MC/CUMM (3.8-5.5); Red Cell Distribution Width 15.6 % (9.3-17.3); White Blood Count 6.4 T/CUMM (4-12)
[2021-05-13 05:40] LABS: Calcium 9.5 MG/DL (8.5-10.1); Potassium 3.8 MMOL/L (3.5-5.1)
[2021-05-13] MEDS: LEVOTHYROXINE 25 MCG TABLET PEG SCH (06:33)
[2021-05-13] MEDS: OMEPRAZOLE ODT 20 MG TABLET PEG SCH ×2 (06:33→20:46)
[2021-05-13] MEDS: INSULIN LISPRO 100 UNIT/ML SUBCUT SCH ×4 (08:07→20:51)
[2021-05-13] MEDS: POLYETHYLENE GLYCOL POWDER 17 GM PACK PEG SCH (09:19)
[2021-05-13] MEDS: ASPIRIN CHEW 81 MG TABLET PO SCH (09:19)
[2021-05-13] MEDS: APIXABAN 5 MG TABLET PEG SCH ×2 (09:19→20:45)
[2021-05-13] MEDS: ATORVASTATIN 10 MG TABLET PEG SCH (20:45)
[2021-05-13] MEDS: ERTAPENEM 1,000 MG in SODIUM CHLORIDE 0.9% 100 ML IV SCH (20:52)
[2021-05-14 05:24] LABS: Basophils % 0.2 % (0.0-0.8); Eosinophils # 0.3 10*3/uL (0.0-0.87); Eosinophils % 5.3 % (0.00-10.9); Hematocrit 34.3 VOL% (35.7-47.0); Hemoglobin 11.3 GM/DL (12.0-16.0); Immature Granulocytes % 0.2 %; Immature Granulocytes Absolute 0.01 #; Lymphocytes # 2.6 10*3/uL (1.4-4.0); Lymphocytes % 40.8 % (21.3-54.2); Mean Corpuscular HGB Conc 32.9 GM/DL (32-36); Mean Corpuscular Volume 85.8 FL (87-102); Mean Platelet Volume 11.4 FL (9.6-12.0); Monocytes % 10.7 % (1.7-12.7); Neutrophils % 42.8 % (38.7-73.9); Platelet Count 134 T/CUMM (130-400); Red Cell Distribution Width 15.5 % (9.3-17.3); White Blood Count 6.4 T/CUMM (4-12)
[2021-05-14 05:27] LABS: Calcium 9.4 MG/DL (8.5-10.1); Osmolality,Calculated 287.8 MOS/KG (273-304)
[2021-05-14] MEDS: LEVOTHYROXINE 25 MCG TABLET PEG SCH (06:57)
[2021-05-14] MEDS: OMEPRAZOLE ODT 20 MG TABLET PEG SCH ×2 (06:57→21:02)
[2021-05-14] MEDS: INSULIN LISPRO 100 UNIT/ML SUBCUT SCH ×4 (07:30→21:51)
[2021-05-14] MEDS: LACTATED RINGERS 1,000 ML IV SCH (07:30)
[2021-05-14] MEDS: POLYETHYLENE GLYCOL POWDER 17 GM PACK PEG SCH (09:57)
[2021-05-14] MEDS: ASPIRIN CHEW 81 MG TABLET PO SCH (09:58)
[2021-05-14] MEDS: APIXABAN 5 MG TABLET PEG SCH ×2 (09:58→21:02)
[2021-05-14] MEDS: ATORVASTATIN 10 MG TABLET PEG SCH (21:02)
[2021-05-14] MEDS: ERTAPENEM 1,000 MG in SODIUM CHLORIDE 0.9% 100 ML IV SCH (21:10)
[2021-05-15 05:48] LABS: Basophils % 0.7 % (0.0-0.8); Eosinophils # 0.4 10*3/uL (0.0-0.87); Eosinophils % 6.4 % (0.00-10.9); Hematocrit 32.8 VOL% (35.7-47.0); Immature Granulocytes % 0.3 %; Immature Granulocytes Absolute 0.02 #; Lymphocytes # 2.1 10*3/uL (1.4-4.0); Lymphocytes % 33.5 % (21.3-54.2); Mean Corpuscular HGB Conc 33.5 GM/DL (32-36); Mean Corpuscular Volume 85.4 FL (87-102); Monocytes % 11.8 % (1.7-12.7); Neutrophils % 47.3 % (38.7-73.9); Platelet Count 149 T/CUMM (130-400); Red Blood Count 3.84 MC/CUMM (3.8-5.5); Red Cell Distribution Width 15.6 % (9.3-17.3); White Blood Count 6.1 T/CUMM (4-12)
[2021-05-15] MEDS: LEVOTHYROXINE 25 MCG TABLET PEG SCH (05:57)
[2021-05-15] MEDS: OMEPRAZOLE ODT 20 MG TABLET PEG SCH ×2 (05:57→20:48)
[2021-05-15 06:06] LABS: Calcium 9.5 MG/DL (8.5-10.1); Osmolality,Calculated 291.6 MOS/KG (273-304); Potassium 3.7 MMOL/L (3.5-5.1)
[2021-05-15] MEDS: INSULIN LISPRO 100 UNIT/ML SUBCUT SCH ×4 (07:04→20:48)
[2021-05-15] MEDS: POLYETHYLENE GLYCOL POWDER 17 GM PACK PEG SCH (08:24)
[2021-05-15] MEDS: APIXABAN 5 MG TABLET PEG SCH ×2 (08:24→20:48)
[2021-05-15] MEDS: amLODIPine 5 MG TABLET PO SCH (08:25)
[2021-05-15] MEDS: ASPIRIN CHEW 81 MG TABLET PO SCH (08:25)
[2021-05-15] MEDS: ERTAPENEM 1,000 MG in SODIUM CHLORIDE 0.9% 100 ML IV SCH (15:22)
[2021-05-15] MEDS: ATORVASTATIN 10 MG TABLET PEG SCH (20:48)
[2021-05-16] MEDS: OMEPRAZOLE ODT 20 MG TABLET PEG SCH (06:40)
[2021-05-16] MEDS: LEVOTHYROXINE 25 MCG TABLET PEG SCH (06:40)
[2021-05-16 06:43] LABS: Basophils % 0.5 % (0.0-0.8); Eosinophils # 0.5 10*3/uL (0.0-0.87); Eosinophils % 7.1 % (0.00-10.9); Hematocrit 35.1 VOL% (35.7-47.0); Hemoglobin 11.3 GM/DL (12.0-16.0); Immature Granulocytes % 0.3 %; Immature Granulocytes Absolute 0.02 #; Lymphocytes # 2.3 10*3/uL (1.4-4.0); Lymphocytes % 36.4 % (21.3-54.2); Mean Corpuscular HGB Conc 32.2 GM/DL (32-36); Mean Corpuscular Volume 86.2 FL (87-102); Mean Platelet Volume 10.8 FL (9.6-12.0); Monocytes % 8.8 % (1.7-12.7); Neutrophils % 46.9 % (38.7-73.9); Platelet Count 165 T/CUMM (130-400); Red Blood Count 4.07 MC/CUMM (3.8-5.5); Red Cell Distribution Width 15.5 % (9.3-17.3); White Blood Count 6.3 T/CUMM (4-12)
[2021-05-16 07:00] LABS: Calcium 9.7 MG/DL (8.5-10.1); Osmolality,Calculated 290.6 MOS/KG (273-304); Potassium 3.7 MMOL/L (3.5-5.1)
[2021-05-16] MEDS: INSULIN LISPRO 100 UNIT/ML SUBCUT SCH ×2 (07:25→10:55)
[2021-05-16] MEDS: ERTAPENEM 1,000 MG in SODIUM CHLORIDE 0.9% 100 ML IV SCH (09:04)
[2021-05-16] MEDS: ASPIRIN CHEW 81 MG TABLET PO SCH (09:04)
[2021-05-16] MEDS: amLODIPine 5 MG TABLET PO SCH (09:04)
[2021-05-16] MEDS: APIXABAN 5 MG TABLET PEG SCH (09:04)
[2021-05-16] MEDS: POLYETHYLENE GLYCOL POWDER 17 GM PACK PEG SCH (09:04)
[2021-05-16 11:24] VITALS: BP 160/63
== END 2021-05-16 11:35 | DRG 689 ==
LOC: EDUNIT# → EDBD → N.ED 08:17 → N.EDINP 13:27 → SUATTDRO 13:27 → N.3E 15:31
PROVIDERS: ADMIT Internal Medicine; ATTEND Internal Medicine

== ENCOUNTER 2022-01-30 15:51 | Inpatient (IN) ==
[2022-01-30] MEDS ORDERED: SODIUM CHLORIDE 0.9% 1,000 ML IV STA (16:47)
[2022-01-30 16:55] LABS: Basophils % 0.2 % (0.0-0.8); Eosinophils % 0.1 % (0.00-10.9); Hematocrit 34.1 VOL% (35.7-47.0); Hemoglobin 11.1 GM/DL (12.0-16.0); Immature Granulocytes Absolute 0.14 #; Lymphocytes # 1.1 10*3/uL (1.4-4.0); Lymphocytes % 8.2 % (21.3-54.2); Mean Corpuscular HGB Conc 32.6 GM/DL (32-36); Mean Corpuscular Volume 85.5 FL (87-102); Mean Platelet Volume 12.2 FL (9.6-12.0); Monocytes # 1.9 10*3/uL (0.11-0.8); Monocytes % 14.1 % (1.7-12.7); Neutrophils % 76.4 % (38.7-73.9); Platelet Count 176 T/CUMM (130-400); Red Blood Count 3.99 MC/CUMM (3.8-5.5); Red Cell Distribution Width 17.2 % (9.3-17.3); White Blood Count 13.5 T/CUMM (4-12)
[2022-01-30 17:08] LABS: Arterial Base Excess iSTAT -3 MMOL/L (-2.5-2.5); Arterial O2 Saturation iSTAT 96 % (95-100); Arterial PCO2 iSTAT 37 MM HG (35-48); Arterial PO2 iSTAT 81 MM HG (80-95); Arterial Total CO2 iSTAT 23 MMO/L (23-27)
[2022-01-30 17:08] LABS: Albumin 2.7 G/DL (3.4-5.0); Bilirubin,Total 0.4 MG/DL (0.20-1.00); Calcium 9.6 MG/DL (8.5-10.1); Osmolality,Calculated 303.7 MOS/KG (273-304); Potassium 4.5 MMOL/L (3.5-5.1); Total Protein 8.1 G/DL (6.4-8.2)
[2022-01-30 17:43] LABS: Bacteria,Urine Many /HPF (Few)
[2022-01-30 17:46] LABS: Urine Appearance Cloudy (Clear); Urine Color Yellow (Yellow)
[2022-01-30 17:47] LABS: Blood, Urine Large mg/dL (Negative); Nitrite,Urine Negative (Negative); Protein,Urine 100 mg/dL (Negative); Urine Urobilinogen 0.2 eU/dL (<2.0)
[2022-01-30 17:48] LABS: Bilirubin,Urine Small mg/dL (Negative); Glucose,Urine (UA) 20000 mg/dL (Negative); Ketones,Urine Negative (Negative)
[2022-01-30] MEDS ORDERED: INSULIN REGULAR 100 UNIT/ML IV STA (18:00)
[2022-01-30] MEDS ORDERED: cefTRIAXone 1,000 MG in SODIUM CHLORIDE 0.9% 100 ML IV STA (18:02)
[2022-01-30] MEDS ORDERED: ACETAMINOPHEN 325 MG TABLET PO PRN (19:03)
[2022-01-30] MEDS ORDERED: GLUCAGON 1 MG VIAL IM PRN ×2 (19:03)
[2022-01-30] MEDS ORDERED: ONDANSETRON 4 MG/2 ML VIAL IV PRN (19:03)
[2022-01-30] MEDS ORDERED: DEXTROSE 50% 25 GM/50 ML VIAL IV PRN ×2 (19:03)
[2022-01-30] MEDS: SODIUM CHLORIDE 0.9% 1,000 ML IV SCH (20:01)
[2022-01-30] MEDS: ENOXAPARIN 30 MG/0.3 ML SYRINGE SUBCUT SCH (23:18)
[2022-01-31] MEDS: INSULIN REGULAR 100 UNIT/ML SUBCUT SCH ×4 (00:18→17:05)
[2022-01-31] MEDS: SODIUM CHLORIDE 0.9% 1,000 ML IV SCH ×2 (03:55→17:04)
[2022-01-31 04:38] LABS: Basophils % 0.1 % (0.0-0.8); Eosinophils % 0.1 % (0.00-10.9); Hemoglobin 10.4 GM/DL (12.0-16.0); Immature Granulocytes % 0.9 %; Immature Granulocytes Absolute 0.13 #; Lymphocytes # 1.2 10*3/uL (1.4-4.0); Lymphocytes % 8.5 % (21.3-54.2); Mean Corpuscular HGB Conc 32.5 GM/DL (32-36); Mean Corpuscular Volume 85.6 FL (87-102); Mean Platelet Volume 11.3 FL (9.6-12.0); Monocytes # 2.3 10*3/uL (0.11-0.8); Monocytes % 16.7 % (1.7-12.7); NRBC # 0.02 10*3/uL; Neutrophils % 73.7 % (38.7-73.9); Platelet Count 158 T/CUMM (130-400); Red Blood Count 3.74 MC/CUMM (3.8-5.5); Red Cell Distribution Width 17.1 % (9.3-17.3); White Blood Count 13.9 T/CUMM (4-12)
[2022-01-31 04:47] LABS: Calcium 9.6 MG/DL (8.5-10.1); Potassium 4.4 MMOL/L (3.5-5.1)
[2022-01-31 05:05] LABS: Band Neutrophils 4 % (0-10); Eosinophils 1 % (0-10); Lymphocytes 3 % (20-55); Platelet Estimate Adequate; Total Cells Counted 100
[2022-01-31] MEDS ORDERED: PANTOPRAZOLE 40 MG TABLET PO SCH (09:00)
[2022-01-31] MEDS: cefTRIAXone 1,000 MG in SODIUM CHLORIDE 0.9% 100 ML IV SCH (10:43)
[2022-01-31] MEDS: ENOXAPARIN 30 MG/0.3 ML SYRINGE SUBCUT SCH (20:44)
[2022-02-01] MEDS: INSULIN REGULAR 100 UNIT/ML SUBCUT SCH ×4 (00:25→18:39)
[2022-02-01] MEDS: SODIUM CHLORIDE 0.9% 1,000 ML IV SCH (05:17)
[2022-02-01 05:51] LABS: Basophils % 0.2 % (0.0-0.8); Eosinophils % 0.3 % (0.00-10.9); Hematocrit 30.9 VOL% (35.7-47.0); Immature Granulocytes % 1.2 %; Immature Granulocytes Absolute 0.14 #; Lymphocytes # 1.1 10*3/uL (1.4-4.0); Lymphocytes % 9.1 % (21.3-54.2); Mean Corpuscular HGB Conc 32.4 GM/DL (32-36); Mean Corpuscular Volume 85.8 FL (87-102); Mean Platelet Volume 11.6 FL (9.6-12.0); Monocytes # 1.7 10*3/uL (0.11-0.8); Monocytes % 14.8 % (1.7-12.7); NRBC # 0.02 10*3/uL; Neutrophils % 74.4 % (38.7-73.9); Platelet Count 183 T/CUMM (130-400); Red Cell Distribution Width 17.3 % (9.3-17.3); White Blood Count 11.6 T/CUMM (4-12)
[2022-02-01 06:17] LABS: Calcium 9.3 MG/DL (8.5-10.1); Osmolality,Calculated 304.1 MOS/KG (273-304); Potassium 4.3 MMOL/L (3.5-5.1)
[2022-02-01] MEDS: cefTRIAXone 1,000 MG in SODIUM CHLORIDE 0.9% 100 ML IV SCH (09:50)
[2022-02-01] MEDS: SODIUM CHLORIDE 0.45% 1,000 ML IV SCH ×2 (09:52→23:43)
[2022-02-01] MEDS: FERROUS SULFATE 325 MG TABLET PO SCH (12:32)
[2022-02-01] MEDS: LEVOTHYROXINE 25 MCG TABLET PO SCH (12:32)
[2022-02-01] MEDS: LACTULOSE 20 GM/30 ML UDCUP PO SCH (14:26)
[2022-02-01] MEDS: APIXABAN 2.5 MG TABLET PO SCH (21:07)
[2022-02-01] MEDS: SIMVASTATIN 10 MG TABLET PO SCH (21:07)
[2022-02-01] MEDS: 4 PO SCH (21:07)
[2022-02-01] MEDS ORDERED: ZALEPLON 5 MG CAPSULE PO ONE (23:30)
[2022-02-02] MEDS: INSULIN REGULAR 100 UNIT/ML SUBCUT SCH ×4 (00:49→17:38)
[2022-02-02] MEDS: 4 PO SCH ×2 (05:41→21:38)
[2022-02-02] MEDS: LEVOTHYROXINE 25 MCG TABLET PO SCH (05:41)
[2022-02-02 05:47] LABS: Basophils % 0.2 % (0.0-0.8); Eosinophils # 0.1 10*3/uL (0.0-0.87); Eosinophils % 0.5 % (0.00-10.9); Hemoglobin 9.7 GM/DL (12.0-16.0); Immature Granulocytes % 3.5 %; Immature Granulocytes Absolute 0.34 #; Lymphocytes # 1.4 10*3/uL (1.4-4.0); Lymphocytes % 14.3 % (21.3-54.2); Mean Corpuscular HGB Conc 32.3 GM/DL (32-36); Mean Corpuscular Volume 85.7 FL (87-102); Mean Platelet Volume 11.6 FL (9.6-12.0); Monocytes # 1.3 10*3/uL (0.11-0.8); Monocytes % 13.3 % (1.7-12.7); NRBC # 0.02 10*3/uL; Neutrophils % 68.2 % (38.7-73.9); Platelet Count 196 T/CUMM (130-400); White Blood Count 9.8 T/CUMM (4-12)
[2022-02-02 06:02] LABS: Calcium 8.8 MG/DL (8.5-10.1); Osmolality,Calculated 301.4 MOS/KG (273-304); Potassium 3.6 MMOL/L (3.5-5.1)
[2022-02-02 06:09] LABS: Folate 14.29 NG/ML (5.38-24.0); Vitamin B12 1242 PG/ML (211-911)
[2022-02-02 06:53] LABS: Sedimentation Rate-Westergren 114 MM/HR (0-30)
[2022-02-02] MEDS: cefTRIAXone 1,000 MG in SODIUM CHLORIDE 0.9% 100 ML IV SCH (09:21)
[2022-02-02] MEDS: amLODIPine 5 MG TABLET PO SCH (09:23)
[2022-02-02] MEDS: ASPIRIN CHEW 81 MG TABLET PO SCH (09:24)
[2022-02-02] MEDS: FLUTICASONE 50 MCG NASAL SPRAY 16 GM BOTTLE BOTH NARES SCH (09:24)
[2022-02-02] MEDS: APIXABAN 2.5 MG TABLET PO SCH ×2 (09:24→21:38)
[2022-02-02] MEDS: SODIUM CHLORIDE 0.45% 1,000 ML IV SCH (15:50)
[2022-02-02] MEDS: MEROPENEM 500 MG in SODIUM CHLORIDE 0.9% 100 ML IV SCH ×2 (15:50→21:38)
[2022-02-02] MEDS: POLYETHYLENE GLYCOL POWDER 17 GM PACK PO SCH (15:51)
[2022-02-02] MEDS: SIMVASTATIN 10 MG TABLET PO SCH (21:38)
[2022-02-03] MEDS: INSULIN REGULAR 100 UNIT/ML SUBCUT SCH ×4 (00:52→18:07)
[2022-02-03] MEDS: SODIUM CHLORIDE 0.45% 1,000 ML IV SCH ×2 (05:38→15:35)
[2022-02-03] MEDS: 4 PO SCH ×2 (06:17→21:18)
[2022-02-03] MEDS: MEROPENEM 500 MG in SODIUM CHLORIDE 0.9% 100 ML IV SCH ×3 (06:17→21:53)
[2022-02-03] MEDS: LEVOTHYROXINE 25 MCG TABLET PO SCH (06:17)
[2022-02-03 06:39] LABS: Calcium 8.7 MG/DL (8.5-10.1); Osmolality,Calculated 292.7 MOS/KG (273-304); Potassium 3.5 MMOL/L (3.5-5.1)
[2022-02-03 06:44] LABS: Basophils % 0.4 % (0.0-0.8); Eosinophils # 0.1 10*3/uL (0.0-0.87); Eosinophils % 0.7 % (0.00-10.9); Hematocrit 29.6 VOL% (35.7-47.0); Hemoglobin 9.5 GM/DL (12.0-16.0); Immature Granulocytes % 3.9 %; Immature Granulocytes Absolute 0.33 #; Lymphocytes # 1.6 10*3/uL (1.4-4.0); Lymphocytes % 19.1 % (21.3-54.2); Mean Corpuscular HGB Conc 32.1 GM/DL (32-36); Mean Corpuscular Volume 85.3 FL (87-102); Mean Platelet Volume 10.3 FL (9.6-12.0); Monocytes # 1.2 10*3/uL (0.11-0.8); Neutrophils % 61.9 % (38.7-73.9); Platelet Count 191 T/CUMM (130-400); Red Blood Count 3.47 MC/CUMM (3.8-5.5); Red Cell Distribution Width 17.2 % (9.3-17.3); White Blood Count 8.4 T/CUMM (4-12)
[2022-02-03] MEDS: APIXABAN 2.5 MG TABLET PO SCH ×2 (08:52→21:18)
[2022-02-03] MEDS: FERROUS SULFATE 325 MG TABLET PO SCH (08:52)
[2022-02-03] MEDS: ASPIRIN CHEW 81 MG TABLET PO SCH (08:52)
[2022-02-03] MEDS: FLUTICASONE 50 MCG NASAL SPRAY 16 GM BOTTLE BOTH NARES SCH (08:52)
[2022-02-03] MEDS: amLODIPine 5 MG TABLET PO SCH (08:52)
[2022-02-03] MEDS: LACTULOSE 20 GM/30 ML UDCUP PO SCH (09:15)
[2022-02-03] MEDS: POLYETHYLENE GLYCOL POWDER 17 GM PACK PO SCH (09:16)
[2022-02-03 10:24] LABS: Hemoglobin A2 (Alkaline) 2.2 % (1.5-3.5); Hemoglobin S (Alkaline) 31.8 %
[2022-02-03] MEDS: SIMVASTATIN 10 MG TABLET PO SCH (21:18)
[2022-02-04] MEDS: INSULIN REGULAR 100 UNIT/ML SUBCUT SCH ×4 (01:08→18:12)
[2022-02-04] MEDS: SODIUM CHLORIDE 0.45% 1,000 ML IV SCH ×2 (05:32→16:26)
[2022-02-04] MEDS: 4 PO SCH ×2 (06:36→21:42)
[2022-02-04] MEDS: MEROPENEM 500 MG in SODIUM CHLORIDE 0.9% 100 ML IV SCH (06:36)
[2022-02-04] MEDS: LEVOTHYROXINE 25 MCG TABLET PO SCH (06:36)
[2022-02-04] MEDS: ASPIRIN CHEW 81 MG TABLET PO SCH (09:07)
[2022-02-04] MEDS: FLUTICASONE 50 MCG NASAL SPRAY 16 GM BOTTLE BOTH NARES SCH (09:08)
[2022-02-04] MEDS: amLODIPine 5 MG TABLET PO SCH (09:08)
[2022-02-04] MEDS: POLYETHYLENE GLYCOL POWDER 17 GM PACK PO SCH (09:08)
[2022-02-04] MEDS: APIXABAN 2.5 MG TABLET PO SCH ×2 (09:08→21:42)
[2022-02-04] MEDS: ERTAPENEM 1,000 MG in SODIUM CHLORIDE 0.9% 100 ML IV SCH (11:04)
[2022-02-04] MEDS ORDERED: MELATONIN 3 MG TABLET PO PRN (20:02)
[2022-02-04] MEDS: SIMVASTATIN 10 MG TABLET PO SCH (21:42)
[2022-02-05] MEDS: INSULIN REGULAR 100 UNIT/ML SUBCUT SCH ×4 (00:27→18:32)
[2022-02-05] MEDS: 4 PO SCH ×2 (06:18→20:37)
[2022-02-05] MEDS: LEVOTHYROXINE 25 MCG TABLET PO SCH (06:18)
[2022-02-05 06:28] LABS: Basophils % 0.2 % (0.0-0.8); Eosinophils # 0.1 10*3/uL (0.0-0.87); Eosinophils % 1.4 % (0.00-10.9); Hematocrit 28.4 VOL% (35.7-47.0); Hemoglobin 9.3 GM/DL (12.0-16.0); Immature Granulocytes % 1.9 %; Immature Granulocytes Absolute 0.17 #; Mean Corpuscular HGB Conc 32.7 GM/DL (32-36); Mean Corpuscular Volume 83.5 FL (87-102); Mean Platelet Volume 10.6 FL (9.6-12.0); Monocytes % 11.4 % (1.7-12.7); Neutrophils % 62.1 % (38.7-73.9); Platelet Count 247 T/CUMM (130-400); Red Cell Distribution Width 17.2 % (9.3-17.3); White Blood Count 8.8 T/CUMM (4-12)
[2022-02-05 06:47] LABS: Calcium 9.2 MG/DL (8.5-10.1); Osmolality,Calculated 284.1 MOS/KG (273-304); Potassium 3.8 MMOL/L (3.5-5.1)
[2022-02-05] MEDS: ASPIRIN CHEW 81 MG TABLET PO SCH (09:32)
[2022-02-05] MEDS: APIXABAN 2.5 MG TABLET PO SCH ×2 (09:32→20:37)
[2022-02-05] MEDS: ERTAPENEM 1,000 MG in SODIUM CHLORIDE 0.9% 100 ML IV SCH (09:32)
[2022-02-05] MEDS: amLODIPine 5 MG TABLET PO SCH (09:32)
[2022-02-05] MEDS: FLUTICASONE 50 MCG NASAL SPRAY 16 GM BOTTLE BOTH NARES SCH (09:33)
[2022-02-05] MEDS: POLYETHYLENE GLYCOL POWDER 17 GM PACK PO SCH (09:34)
[2022-02-05] MEDS: SODIUM CHLORIDE 0.45% 1,000 ML IV SCH ×2 (20:00→20:36)
[2022-02-05] MEDS: SIMVASTATIN 10 MG TABLET PO SCH (20:37)
[2022-02-06] MEDS: LEVOTHYROXINE 25 MCG TABLET PO SCH (05:53)
[2022-02-06] MEDS ORDERED: INSULIN REGULAR 100 UNIT/ML SUBCUT SCH (07:30)
[2022-02-06 07:32] VITALS: BP 134/63
[2022-02-06] MEDS ORDERED: OMEPRAZOLE ODT 20 MG TABLET PO SCH (09:00)
[2022-02-06] MEDS: FLUTICASONE 50 MCG NASAL SPRAY 16 GM BOTTLE BOTH NARES SCH (09:26)
[2022-02-06] MEDS: amLODIPine 5 MG TABLET PO SCH (09:26)
[2022-02-06] MEDS: ASPIRIN CHEW 81 MG TABLET PO SCH (09:26)
[2022-02-06] MEDS: FERROUS SULFATE 325 MG TABLET PO SCH (09:26)
[2022-02-06] MEDS: ERTAPENEM 1,000 MG in SODIUM CHLORIDE 0.9% 100 ML IV SCH (09:26)
[2022-02-06] MEDS: APIXABAN 2.5 MG TABLET PO SCH (09:26)
[2022-02-06] MEDS: SODIUM CHLORIDE 0.45% 1,000 ML IV SCH (10:03)
[2022-02-06] MEDS: LACTULOSE 20 GM/30 ML UDCUP PO SCH (10:03)
[2022-02-06] MEDS: POLYETHYLENE GLYCOL POWDER 17 GM PACK PO SCH (10:04)
[2022-02-07] MEDS ORDERED: LEVOTHYROXINE 50 MCG TABLET PO SCH (06:30)
== END 2022-02-06 11:08 | DRG 690 ==
LOC: EDBD → EDUNIT# → N.ED 15:51 → N.EDINP 19:03 → SUATTDRO 19:03 → N.5E 01-31 11:28
PROVIDERS: ADMIT Internal Medicine; ATTEND Emergency Medicine

== ENCOUNTER 2022-07-22 20:21 | Inpatient (IN) ==
[2022-07-22] MEDS ORDERED: MAGNESIUM SULF RIDER 4 GM/100 ML PREMIX IV PRN (21:24)
[2022-07-22] MEDS ORDERED: SODIUM CHLORIDE 0.9% 500 ML IV ONE (21:24)
[2022-07-22] MEDS ORDERED: MAGNESIUM SULF RIDER 2 GM/50 ML PREMIX IV PRN (21:24)
[2022-07-22 21:34] LABS: Basophils % 0.2 % (0.0-0.8); Eosinophils % 0.2 % (0.00-10.9); Hematocrit 31.3 VOL% (35.7-47.0); Hemoglobin 10.2 GM/DL (12.0-16.0); Immature Granulocytes Absolute 0.12 #; Lymphocytes # 1.3 10*3/uL (1.4-4.0); Mean Corpuscular HGB Conc 32.6 GM/DL (32-36); Mean Corpuscular Volume 84.8 FL (87-102); Mean Platelet Volume 10.7 FL (9.6-12.0); Monocytes # 1.1 10*3/uL (0.11-0.8); Neutrophils % 78.6 % (38.7-73.9); Platelet Count 224 T/CUMM (130-400); Red Blood Count 3.69 MC/CUMM (3.8-5.5); Red Cell Distribution Width 17.1 % (9.3-17.3); White Blood Count 12.15 T/CUMM (4-12)
[2022-07-22 21:59] LABS: Calcium 9.1 MG/DL (8.5-10.1); Osmolality,Calculated 329.3 MOS/KG (273-304); Phosphorous 2.4 MG/DL (2.5-4.9); Potassium 4.5 MMOL/L (3.5-5.1)
[2022-07-22] MEDS ORDERED: INSULIN REGULAR 100 UNIT/ML IV STA (22:15)
[2022-07-22 23:22] LABS: Glucose,Urine (UA) >=1000 mg/dL (Negative); Protein,Urine Trace mg/dL (Negative); RBC,Urine 5 /HPF (0-4); Squamous Epithelial Cell,Urine Occasional /HPF (0-10); Urine Appearance Clear (Clear); Urine Color Yellow (Yellow); Urine pH 5.5 (4.5-8.0)
[2022-07-22 23:23] LABS: Bilirubin,Urine Negative (Negative); Blood, Urine Moderate mg/dL (Negative); Ketones,Urine Negative (Negative); Nitrite,Urine Positive (Negative); Urine Urobilinogen 0.2 eU/dL (<2.0)
[2022-07-22] MEDS ORDERED: GLUCAGON 1 MG VIAL IM PRN (23:30)
[2022-07-22] MEDS ORDERED: hydrALAZINE 20 MG/1 ML VIAL IV PRN (23:30)
[2022-07-22] MEDS ORDERED: cefTRIAXone 1,000 MG in SODIUM CHLORIDE 0.9% 100 ML IV SCH (23:30)
[2022-07-22] MEDS ORDERED: ACETAMINOPHEN 325 MG TABLET PO PRN (23:30)
[2022-07-22] MEDS ORDERED: ONDANSETRON 4 MG/2 ML VIAL IV PRN (23:30)
[2022-07-22] MEDS ORDERED: SODIUM CHLORIDE 0.9% 500 ML IV STA (23:34)
[2022-07-22] MEDS ORDERED: SODIUM CHLORIDE 0.9% 1,000 ML IV STA (23:40)
[2022-07-22] MEDS ORDERED: DEXTROSE 10% 250 ML BAG IV PRN (23:47)
[2022-07-23] MEDS: MEROPENEM 500 MG in SODIUM CHLORIDE 0.9% 100 ML IV SCH ×3 (00:39→23:23)
[2022-07-23] MEDS: LACTATED RINGERS 1,000 ML IV SCH ×2 (02:30→12:07)
[2022-07-23] MEDS: INSULIN LISPRO 100 UNIT/ML SUBCUT SCH ×6 (02:30→22:17)
[2022-07-23 04:08] LABS: Basophils % 0.1 % (0.0-0.8); Eosinophils # 0.1 10*3/uL (0.0-0.87); Eosinophils % 0.4 % (0.00-10.9); Hematocrit 27.9 VOL% (35.7-47.0); Immature Granulocytes % 1.2 %; Immature Granulocytes Absolute 0.17 #; Lymphocytes # 1.7 10*3/uL (1.4-4.0); Lymphocytes % 11.9 % (21.3-54.2); Mean Corpuscular HGB Conc 32.3 GM/DL (32-36); Mean Corpuscular Volume 85.3 FL (87-102); Mean Platelet Volume 10.4 FL (9.6-12.0); Monocytes # 1.3 10*3/uL (0.11-0.8); Monocytes % 9.3 % (1.7-12.7); Neutrophils % 77.1 % (38.7-73.9); Platelet Count 235 T/CUMM (130-400); Red Blood Count 3.27 MC/CUMM (3.8-5.5); White Blood Count 14.18 T/CUMM (4-12)
[2022-07-23 04:29] LABS: Alanine Aminotransferase 71 U/L (13-56); Albumin 2.1 G/DL (3.4-5.0); Alkaline Phosphatase 109 U/L (45-117); Aspartate Amino Transferase 28 U/L (0-37); Bilirubin,Total < 0.39 MG/DL (0.20-1.00); Blood Urea Nitrogen 50 MG/DL (7-18); Calcium 8.9 MG/DL (8.5-10.1); Carbon Dioxide 23 MMOL/L (21-32); Chloride 119 MMOL/L (98-107); Glucose 266 MG/DL (74-106); Osmolality,Calculated 317.1 MOS/KG (273-304); Sodium 149 MMOL/L (136-145); Total Protein 7.4 G/DL (6.4-8.2)
[2022-07-23] MEDS: LEVOTHYROXINE 25 MCG TABLET PO SCH (07:29)
[2022-07-23] MEDS: FLUTICASONE 50 MCG NASAL SPRAY 16 GM BOTTLE BOTH NARES SCH (08:24)
[2022-07-23] MEDS: APIXABAN 2.5 MG TABLET PO SCH ×2 (09:30→20:08)
[2022-07-23] MEDS: ASPIRIN CHEW 81 MG TABLET PO SCH (09:30)
[2022-07-23] MEDS: POLYETHYLENE GLYCOL POWDER 17 GM PACK PO SCH (09:30)
[2022-07-23] MEDS: PANTOPRAZOLE 40 MG TABLET PO SCH (09:30)
[2022-07-23] MEDS: amLODIPine 5 MG TABLET PO SCH (09:30)
[2022-07-23] MEDS ORDERED: DEXTROSE 50% 25 GM/50 ML VIAL IV PRN (16:58)
[2022-07-23] MEDS ORDERED: GLUCAGON 1 MG VIAL IM PRN (16:58)
[2022-07-23] MEDS ORDERED: SIMVASTATIN 10 MG TABLET PO SCH (21:00)
[2022-07-23] MEDS: SODIUM CHLORIDE 0.45% 1,000 ML IV SCH (22:17)
[2022-07-24] MEDS: LEVOTHYROXINE 25 MCG TABLET PO SCH (05:41)
[2022-07-24] MEDS: INSULIN LISPRO 100 UNIT/ML SUBCUT SCH ×2 (08:19→12:17)
[2022-07-24] MEDS: ASPIRIN CHEW 81 MG TABLET PO SCH (08:53)
[2022-07-24] MEDS: FLUTICASONE 50 MCG NASAL SPRAY 16 GM BOTTLE BOTH NARES SCH (08:53)
[2022-07-24] MEDS: APIXABAN 2.5 MG TABLET PO SCH (08:53)
[2022-07-24] MEDS: amLODIPine 5 MG TABLET PO SCH (08:53)
[2022-07-24] MEDS: PANTOPRAZOLE 40 MG TABLET PO SCH (08:53)
[2022-07-24] MEDS: POLYETHYLENE GLYCOL POWDER 17 GM PACK PO SCH (08:54)
[2022-07-24] MEDS ORDERED: FERROUS SULFATE 325 MG TABLET PO SCH (09:00)
[2022-07-24] MEDS: SODIUM CHLORIDE 0.45% 1,000 ML IV SCH ×3 (09:23→09:28)
[2022-07-24 09:28] LABS: Basophils % 0.2 % (0.0-0.8); Eosinophils # 0.1 10*3/uL (0.0-0.87); Eosinophils % 0.7 % (0.00-10.9); Hemoglobin 8.8 GM/DL (12.0-16.0); Immature Granulocytes % 0.9 %; Immature Granulocytes Absolute 0.12 #; Lymphocytes # 1.5 10*3/uL (1.4-4.0); Mean Corpuscular HGB Conc 31.4 GM/DL (32-36); Mean Corpuscular Volume 85.9 FL (87-102); Mean Platelet Volume 9.8 FL (9.6-12.0); Monocytes % 7.5 % (1.7-12.7); Neutrophils % 78.7 % (38.7-73.9); Platelet Count 256 T/CUMM (130-400); Red Blood Count 3.26 MC/CUMM (3.8-5.5); Red Cell Distribution Width 17.2 % (9.3-17.3); White Blood Count 12.72 T/CUMM (4-12)
[2022-07-24 09:49] LABS: Alanine Aminotransferase 62 U/L (13-56); Albumin 1.9 G/DL (3.4-5.0); Alkaline Phosphatase 102 U/L (45-117); Aspartate Amino Transferase 24 U/L (0-37); Bilirubin,Total < 0.39 MG/DL (0.20-1.00); Blood Urea Nitrogen 45 MG/DL (7-18); Calcium 9.3 MG/DL (8.5-10.1); Carbon Dioxide 23 MMOL/L (21-32); Chloride 116 MMOL/L (98-107); Glucose 248 MG/DL (74-106); Potassium 4.8 MMOL/L (3.5-5.1); Sodium 143 MMOL/L (136-145)
[2022-07-24] MEDS: MEROPENEM 500 MG in SODIUM CHLORIDE 0.9% 100 ML IV SCH (12:20)
[2022-07-24 12:38] VITALS: BP 139/62
[2022-07-24] MEDS ORDERED: FOSFOMYCIN 3 GM PACK PO ONE (15:00)
[2022-07-25] MEDS ORDERED: LEVOTHYROXINE 50 MCG TABLET PO SCH (06:30)
== END 2022-07-24 15:21 | DRG 638 ==
LOC: EDBD → EDUNIT# → N.ED 20:21 → SUATTDRO 23:30 → N.EDINP 23:30 → N.2E 07-23 15:34
PROVIDERS: ADMIT Emergency Medicine; ATTEND Internal Medicine